=== PATIENT | male | born 1965 | race Caucasian/White ===

== ENCOUNTER 2016-07-05 11:04 | Emergency (ER) | payer OTHER ==
[2016-07-05] MEDS ORDERED: ONDANSETRON HCL INJ/PF 4 MG/2 ML SDV ONE (11:19)
[2016-07-05 11:29] LABS: ABSOLUTE BASOPHILS # (AUTO) 0.1 10^3/uL (0.0-0.2); ABSOLUTE LYMPHOCYTES (AUTO) 2.1 10^3/uL (0.5-4.7); ABSOLUTE MONOCYTES (AUTO) 0.5 10^3/uL (0.1-1.4); BASOPHILS % (AUTO) 0.7 % (0-2); HEMATOCRIT 37.8 % (37.9-51.0); HGB HCT DIFFERENCE 1.2; LYMPHOCYTES % (AUTO) 19.5 % (13-45); MEAN CORPUSCULAR HEMOGLOBIN 33.4 pg (27.0-33.4); MEAN CORPUSCULAR HGB CONC 34.4 g/dL (32.0-36.0); MEAN CORPUSCULAR VOLUME 97 fl (80-97); MONOCYTES % (AUTO) 4.6 % (3-13); RED CELL DISTRIBUTION WIDTH 14.1 % (11.5-14.0); SEGMENTED NEUTROPHILS % (AUTO) 75.2 % (42-78); WHITE BLOOD COUNT 10.6 10^3/uL (4.0-10.5)
[2016-07-05] MEDS ORDERED: NORMAL SALINE 1000 ML 1,000 ML IV PRN (11:37)
[2016-07-05] MEDS ORDERED: PANTOPRAZOLE SODIUM 40 MG VIAL IV ONE (11:37)
[2016-07-05 11:38] LABS: PROTHROMBIN TIME 13.1 SEC (11.4-15.4)
[2016-07-05] MEDS ORDERED: THIAMINE HCL 100 MG, FOLIC ACID 1 MG in NORMAL SALINE 50 ML IV ONE (11:38)
[2016-07-05] MEDS ORDERED: LORAZEPAM INJ 2 MG/1 ML VIAL IV ONE (11:38)
[2016-07-05] MEDS ORDERED: PANTOPRAZOLE SODIUM 40 MG VIAL IV PRN (11:38)
[2016-07-05] MEDS ORDERED: NORMAL SALINE 250 ML IV PRN (11:39)
[2016-07-05] MEDS ORDERED: NORMAL SALINE 500 ML with OCTREOTIDE ACETATE 500 MCG IV PRN ×2 (11:44)
--- NOTE | 2016-07-05 11:44 | ER Document Report ---
ED General - General Chief Complaint: Nausea/Vomiting Stated Complaint: VOMITING Time seen by provider: 11:30 Mode of Arrival: Medic Information source: Patient Notes: 50-year-old male with a 2 day history of coffee ground emesis and black tarry stools. He reports she's also had diaphoresis and chills for the past 2 days but denies any fever, cough, shortness of breath, chest pain, abdominal pain, or back pain. He denies any hematemesis or hematochezia. He denies any past history of symptoms like this. He reports drinking 240 ounce beers at night most recent L [employer] was last night. EMS found initial blood pressure to be 70/54 with a heart rate of 145. The patient reports feeling somewhat better now after 1 L of IV fluids. And Zofran 8 mg IV. Physical Exam: General: Alert, appears uncomfortable and shaky HEENT: Normocephalic. Atraumatic. PERRLA. Extraocular movements intact. Oropharynx clear. Neck: Supple. Non-tender. Respiratory tachypnea. Clear and equal breath sounds bilaterally. Cardiovascular: Tachycardic Abdominal: Normal Inspection. Soft, non-tender. No distension. Normal Bowel Sounds. No guarding rebound rigidity rectal normal tone tarry stool Back: Non-tender. No deformity or step off. Extremities: Moves all four extremities. Upper extremities: Normal inspection. Non-tender. Normal color. Normal ROM. Normal temperature. Lower extremities: Normal inspection. Non-tender. No edema. Normal color. Normal ROM. Normal temperature. Neurological: Speech clear mentation normal moves all extremities well Psychological: Normal affect. Normal Mood. Skin: Cool and clammy . Normal color. TRAVEL OUTSIDE OF THE U.S. IN LAST 30 DAYS: No - Related Data Allergies/Adverse Reactions: No Known Allergies Allergy (Verified 01/04/15 14:06) Past Medical History - Social History Smoking Status: Current Every Day Smoker Frequency of alcohol use: Heavy Family History: None - Past Medical History Cardiac Medical History: Reports: Hx Hypertension Denies: Hx Coronary Artery Disease, Hx Heart Attack Pulmonary Medical History: Reports: Hx Pneumonia Denies: Hx Asthma, Hx Bronchitis, Hx COPD Neurological Medical History: Denies: Hx Cerebrovascular Accident, Hx Seizures Musculoskeltal Medical History: Reports Hx Arthritis Psychiatric Medical History: Reports: Hx Depression Traumatic Medical History: Reports: Hx Fractures - right ankle Past Surgical History: Denies: Hx Pacemaker - Immunizations Hx Diphtheria, Pertussis, Tetanus Vaccination: No Hx Pneumococcal Vaccination: 06/28/15 Review of Systems - Review of Systems Constitutional: denies: Fever EENT: denies: Ear pain, Throat pain Cardiovascular: denies: Chest pain, Syncope Respiratory: denies: Cough, Short of breath Gastrointestinal: See HPI. denies: Diarrhea Genitourinary: denies: Burning Musculoskeletal: denies: Back pain Skin: denies: Rash Hematologic/Lymphatic: denies: Swollen glands Neurological/Psychological: denies: Weakness, Numbness Physical Exam - Vital signs Vitals: Resp Pulse Ox 22 H 99 07/05/16 11:14 07/05/16 11:14 Course - Re-evaluation Re-evalutation: 07/05/16 14:21 Patient was hypotensive in the field but responded promptly to IV fluids and has not had any further episodes of hypotension however he has remained tachycardic after 3 L of saline. Type and cross for 2 units has been ordered but I will not or administer those as yet. I suspect upper GI bleed most likely ulcer he has not had any hematemesis worrisome for variceal bleeding. This facility currently has no gastroenterology coverage. He requires transfer and of the hospitalist service at [facility] in [place] has accepted him in transfer. Patient has been started on IV proton ask and IV Sandostatin in case there is a variceal component to his bleeding. Patient was slightly shaky on arrival but no bleeding she had an alcohol withdrawal but he will receive thiamine and folate and did receive one dose of IV Ativan on arrival. He is not having any evidence currently of DTs Critical care time excluding billable procedures 45 minutes - Vital Signs Vital signs: Temp Pulse Resp BP Pulse Ox 21 H 150/107 H 100 07/05/16 13:01 07/05/16 13:00 07/05/16 13:01 - Laboratory Result Diagrams: 07/05/16 11:05 07/05/16 11:05 Laboratory results interpreted by me: 07/05/16 07/05/16 07/05/16 11:05 11:05 11:05 WBC 10.6 H RBC 3.90 L Hgb 13.0 L Hct 37.8 L RDW 14.1 H Chloride 97 L BUN 38 H Glucose 190 H AST 101 H ALT 89 H Alkaline Phosphatase 215 H Urine Protein Urine Ketones Crossmatch See Detail 07/05/16 13:10 WBC RBC Hgb Hct RDW Chloride BUN Glucose AST ALT Alkaline Phosphatase Urine Protein 30 H Urine Ketones 20 H Crossmatch - Diagnostic Test Radiology reviewed: Image reviewed, Reports reviewed - EKG Interpretation by Me Additional EKG results interpreted by me: 07/05/16 14:21 EKG reviewed by myself sinus tachycardia 109 no acute changes Discharge - Discharge Clinical Impression: Alcohol abuse Gastrointestinal hemorrhage Qualifiers: GI bleed type/associated pathology: melena Qualified Code(s): K92.1 - Melena Hypotension Qualifiers: Hypotension type: unspecified hypotension type Qualified Code(s): I95.9 - Hypotension, unspecified Condition: Serious Disposition: [facility]
[2016-07-05 11:56] LABS: ALANINE AMINOTRANSFERASE 89 U/L (21-72); ALBUMIN 4.2 g/dL (3.5-5.0); ALKALINE PHOSPHATASE 215 U/L (38-126); ANION GAP 19 (5-19); ASPARTATE AMINO TRANSFERASE 101 U/L (17-59); BILIRUBIN,TOTAL 0.8 mg/dL (0.2-1.3); BLOOD UREA NITROGEN 38 mg/dL (7-20); CALCIUM 8.6 mg/dL (8.4-10.2); CARBON DIOXIDE 22 mmol/L (22-30); CHLORIDE 97 mmol/L (98-107); CREATININE RESULT 0.69 mg/dL (0.52-1.25); GLUCOSE 190 mg/dL (75-110); LIPASE 68.6 U/L (23-300); POTASSIUM 4.1 mmol/L (3.6-5.0); SODIUM 138.1 mmol/L (137-145); TOTAL PROTEIN 7.8 g/dL (6.3-8.2)
[2016-07-05 13:35] LABS: APPEARANCE,URINE CLEAR; BILIRUBIN,URINE NEGATIVE (NEGATIVE); GLUCOSE, URINE NEGATIVE (NEGATIVE); KETONES,URINE 20 mg/dL (NEGATIVE); LEUKOCYTE ESTERASE,URINE NEGATIVE (NEGATIVE); NITRITE,URINE NEGATIVE (NEGATIVE); PROTEIN,URINE 30 mg/dL (NEGATIVE); URINE SPECIFIC GRAVITY 1.025; UROBILINOGEN,URINE NEGATIVE mg/dL (<2.0)
[2016-07-05] MEDS ORDERED: LORAZEPAM INJ 2 MG/1 ML VIAL ONE (16:09)
[2016-07-05 16:47] VITALS: BP 115/87
--- NOTE | 2016-07-05 20:04 | EKG REPORT ---
SEVERITY:- BORDERLINE ECG - SINUS TACHYCARDIA BORDERLINE PROLONGED QT INTERVAL : Confirmed by: Davi Kay 05-Jul-2016 20:02:27
== END 2016-07-05 16:53 | disposition short-term general hospital (02) ==
LOC: ER 11:04
DX: K92.2 Gastrointestinal hemorrhage, unspecified (principal); F10.239 Alcohol dependence with withdrawal, unspecified; I95.9 Hypotension, unspecified; R11.10 Vomiting, unspecified; R61 Generalized hyperhidrosis; R68.83 Chills (without fever); R00.0 Tachycardia, unspecified; R06.82 Tachypnea, not elsewhere classified; F17.200 Nicotine dependence, unspecified, uncomplicated; I10 Essential (primary) hypertension
CPT/HCPCS: 93005; 96376; 99291; 96375; 96365; 96366; 96367; 86900; 86901; 36415; 87086; 86850; 80307; 82140; 83690; 85025; 85610; 85730; 82272; 80053; 81001; 86920; 71010; 93010; J3490; J2060; S0164; J3411; J2405; J7030

== ENCOUNTER 2016-08-27 16:15 | Emergency (ER) | payer OTHER ==
[2016-08-27] MEDS ORDERED: ONDANSETRON 4 MG TAB.RAPDIS PO ONE (17:44)
[2016-08-27] MEDS ORDERED: OXYCODONE-ACETAMINOPHEN 5-325 MG TABLET PO ONE (17:44)
--- NOTE | 2016-08-27 17:48 | ER Document Report ---
HPI - HPI Patient complains to provider of: left wrist injury Onset: This afternoon Onset/Duration: Sudden Pain Level: 5 Context: 50 yo male hyperextended left wrist when fell this afternoon. Swelling and tender distal radiaus. Associated Symptoms: None Exacerbated by: Movement Relieved by: Denies Similar symptoms previously: No Recently seen / treated by doctor: No - ROS ROS below otherwise negative: Yes Systems Reviewed and Negative: Yes All other systems reviewed and negative - REPRODUCTIVE Reproductive: DENIES: : - DERM Skin Color: Normal Past Medical History - General Information source: Patient - Social History Smoking Status: Current Every Day Smoker Frequency of alcohol use: Occasional Drug Abuse: None Lives with: Family Family History: None - Past Medical History Cardiac Medical History: Reports: Hx Hypertension Pulmonary Medical History: Reports: Hx Pneumonia Renal/ Medical History: Denies: Hx Peritoneal Dialysis Musculoskeltal Medical History: Reports Hx Arthritis Psychiatric Medical History: Reports: Hx Depression Traumatic Medical History: Reports: Hx Fractures - right ankle Past Surgical History: Denies: Hx Pacemaker - Immunizations Hx Diphtheria, Pertussis, Tetanus Vaccination: No Hx Pneumococcal Vaccination: 06/28/15 Vertical Provider Document - CONSTITUTIONAL Agree With Documented VS: Yes Exam Limitations: No Limitations - INFECTION CONTROL TRAVEL OUTSIDE OF THE U.S. IN LAST 30 DAYS: No - HEENT HEENT: Normocephalic - NECK Neck: Supple - RESPIRATORY O2 Sat by Pulse Oximetry: 95 - MUSCULOSKELETAL/EXTREMETIES Musculoskeletal/Extremeties: Tender - sweling dorsal radial wrist soft tissue, tender distal radisu, Edema Notes: avoids flexion and extension due to pain, ulna non tender - NEURO Level of Consciousness: Awake, Alert, Appropriate Motor/Sensory: No Motor Deficit, No Sensory Deficit - DERM Integumentary: Warm, Dry, No Rash Course - Re-evaluation Re-evalutation: 08/27/16 18:07 [facility] that I did give him the referral to Dr. Henley. Prelim radiology interpretation is impacted distal left radius fracture 08/27/16 18:11 08/27/16 23:16 ? scaphoid fx per radiologist, will call the pt in the morning to insure that he understands the need for follow up - Vital Signs Vital signs: Temp Pulse Resp BP Pulse Ox 98.2 F 93 18 138/100 H 95 08/27/16 17:17 08/27/16 17:17 08/27/16 17:17 08/27/16 17:17 08/27/16 17:17 Procedures - Immobilization Left Wrist Time completed: 18:15 Pre-Proc Neuro Vasc Exam: Normal Immobilizer type: Volar splint, Sling Performed by: PCT Post-Proc Neuro Vasc Exam: Normal Alignment checked and good: Yes Discharge - Discharge Clinical Impression: Elevated blood pressure reading, impacted distal radius fracture Condition: Good Disposition: HOME, SELF-CARE Instructions: Splint Precautions ([facility]), Splint Pending Casting ([facility]), Oral Narcotic Medication ([facility]), Family Physicians / Practices Additional Instructions: elevate splint sling recheck your blood pressure with family practice doctor this week call the orthopedic doctor for appointment this week to er any concerns Please complete the patient satisfaction survey if you get one, and return it.. If you do not receive a survey, then you can go to the [facility] website, [email or web address] and place your comments about your very good care. Thank you very much. It was a pleasure being your medical provider today. Prescriptions: Oxycodone HCl/Acetaminophen [Percocet 5-325 mg Tablet] 1 - 2 tab PO ASDIR PRN # 20 tablet PRN Reason: Referrals: GUANAKITO HENLYE DO [ACTIVE STAFF] - Follow up tomorrow
[2016-08-27 18:15] VITALS: BP 132/96
== END 2016-08-27 18:27 | disposition home or self-care (01) ==
LOC: ER 16:15
PROC: 2W3DX1Z Immobilization of Left Lower Arm using Splint (ICD-10-PCS; principal; 2016-08-27)
DX: S52.592A Other fractures of lower end of left radius, initial encounter for closed fracture (principal); W07.XXXA Fall from chair, initial encounter; Y93.89 Activity, other specified; F17.200 Nicotine dependence, unspecified, uncomplicated; I10 Essential (primary) hypertension
CPT/HCPCS: 29125; 99283; 73110; S0119

== ENCOUNTER 2016-10-02 09:00 | Emergency (ER) | payer OTHER ==
[2016-10-02 09:45] LABS: ABSOLUTE BASOPHILS # (AUTO) 0.1 10^3/uL (0.0-0.2); ABSOLUTE EOSINOPHILS # (AUTO) 0.1 10^3/uL (0.0-0.6); ABSOLUTE MONOCYTES (AUTO) 0.8 10^3/uL (0.1-1.4); ABSOLUTE NEUT (AUTO) 5.2 10^3/uL (1.7-8.2); BASOPHILS % (AUTO) 1.1 % (0-2); EOSINOPHILS % (AUTO) 0.7 % (0-6); HEMATOCRIT 37.5 % (37.9-51.0); HEMOGLOBIN 12.6 g/dL (13.5-17.0); HGB HCT DIFFERENCE 0.3; LYMPHOCYTES % (AUTO) 24.9 % (13-45); MEAN CORPUSCULAR HEMOGLOBIN 32.8 pg (27.0-33.4); MEAN CORPUSCULAR HGB CONC 33.5 g/dL (32.0-36.0); MEAN CORPUSCULAR VOLUME 98 fl (80-97); MONOCYTES % (AUTO) 10.2 % (3-13); RED BLOOD COUNT 3.83 10^6/uL (4.35-5.55); SEGMENTED NEUTROPHILS % (AUTO) 63.1 % (42-78); WHITE BLOOD COUNT 8.2 10^3/uL (4.0-10.5)
[2016-10-02 10:07] LABS: ALANINE AMINOTRANSFERASE 60 U/L (21-72); ALKALINE PHOSPHATASE 142 U/L (38-126); ANION GAP 15 (5-19); ASPARTATE AMINO TRANSFERASE 64 U/L (17-59); BILIRUBIN,DIRECT 0.5 mg/dL (0.0-0.4); BILIRUBIN,TOTAL 1.2 mg/dL (0.2-1.3); BLOOD UREA NITROGEN 23 mg/dL (7-20); CALCIUM 9.1 mg/dL (8.4-10.2); CARBON DIOXIDE 24 mmol/L (22-30); CHLORIDE 103 mmol/L (98-107); CREATININE RESULT 0.67 mg/dL (0.52-1.25); GLUCOSE 104 mg/dL (75-110); LIPASE 79.2 U/L (23-300); POTASSIUM 3.6 mmol/L (3.6-5.0); TOTAL PROTEIN 7.2 g/dL (6.3-8.2)
[2016-10-02 10:18] LABS: PROTHROMBIN TIME 13.3 SEC (11.4-15.4)
[2016-10-02] MEDS ORDERED: METOCLOPRAMIDE HCL ORAL SOLN 10 MG/10 ML UDCUP PO ONE (10:20)
[2016-10-02] MEDS ORDERED: MAG HYDROX/AL HYDROX/SIMETH SUSP 30 ML UDCUP PO ONE (10:20)
[2016-10-02] MEDS ORDERED: LIDOCAINE 2% VISCOUS SOLN 20 ML UDCUP PO ONE (10:20)
[2016-10-02] MEDS ORDERED: PANTOPRAZOLE SODIUM 40 MG VIAL IV ONE (10:21)
--- NOTE | 2016-10-02 10:21 | ER Document Report ---
ED GI Bleed / Rectal Pain - General Mode of Arrival: Medic Information source: Patient TRAVEL OUTSIDE OF THE [place] IN LAST 30 DAYS: No - HPI Patient complains to provider of: Dark/tarry stools Onset: Yesterday Timing/Duration: Sudden, Persistent Emesis description: Blood tinged Dark Stools: Black Use of: NSAIDS Associated symptoms: Abdominal pain Similar symptoms previously: Yes - 3 months ago Gastric Ulcer <HARMONY RIGGINS - Last Filed: 10/02/16 12:04> <JUSTINA HYLTON - Last Filed: 10/09/16 03:42> - General Chief Complaint: Rectal Bleeding Stated Complaint: RECTAL BLEEDING Time Seen by Provider: 10/02/16 09:59 Notes: Patient is a 50-year-old male, with history of heavy alcohol consumption and a gastric ulcer 3 months ago, presenting to the emergency department via EMS concerned of black stools and blood streaked stools. Patient states that this began yesterday afternoon, and has continued throughout the night into today. Patient states that his bowel movements were thick and black, and now they are loose with a red tint. Patient denies any nausea or vomiting, but admits to epigastric abdominal pain. Patient also admits to significant use of Naproxen and Ibuprofen for pain associated with his arthritis. (HARMONY RIGGINS) - Related Data Allergies/Adverse Reactions: No Known Allergies Allergy (Verified 10/02/16 09:12) Past Medical History - General Information source: Patient - Social History Smoking Status: Never Smoker Cigarette use (# per day): No Chew tobacco use (# tins/day): Yes Frequency of alcohol use: Heavy Drug Abuse: None Family History: None Patient has suicidal ideation: No Patient has homicidal ideation: No - Past Medical History Cardiac Medical History: Reports: Hx Hypertension Pulmonary Medical History: Reports: Hx Pneumonia GI Medical History: Reports: Hx Endoscopy, Other - Gastric ulcer Musculoskeltal Medical History: Reports Hx Arthritis Psychiatric Medical History: Reports: Hx Depression Traumatic Medical History: Reports: Hx Fractures - right ankle, left wrist - Immunizations Hx Diphtheria, Pertussis, Tetanus Vaccination: No Hx Pneumococcal Vaccination: 06/28/15 <HARMONY RIGGINS - Last Filed: 10/02/16 12:04> Review of Systems - Review of Systems Constitutional: No symptoms reported EENT: No symptoms reported Cardiovascular: No symptoms reported Respiratory: No symptoms reported Gastrointestinal: See HPI, Abdominal pain, Blood streaked bowels, Black stools Genitourinary: No symptoms reported Male Genitourinary: No symptoms reported Musculoskeletal: No symptoms reported Skin: No symptoms reported Hematologic/Lymphatic: No symptoms reported Neurological/Psychological: No symptoms reported -: Yes All other systems reviewed and negative <HARMONY RIGGINS - Last Filed: 10/02/16 12:04> Physical Exam - General General appearance: Alert - HEENT Head: Normocephalic, Atraumatic Eyes: Normal Pupils: PERRL - Respiratory Respiratory status: No respiratory distress Chest status: Nontender Breath sounds: Normal Chest palpation: Normal - Cardiovascular Rhythm: Regular Heart sounds: Normal auscultation Murmur: No - Abdominal Inspection: Normal Distension: No distension Bowel sounds: Normal Tenderness: Tender - Mild epigastric tenderness to palpation, no guarding, rebound or rigidity. Organomegaly: No organomegaly - Rectal Stool: Heme positive, Black - Back Back: Normal, Nontender - Extremities General lower extremity: Normal inspection, Nontender Wrist: Other - Cast on left wrist - Neurological Neuro grossly intact: Yes Cognition: Normal Orientation: AAOx4 [place] Coma Scale Eye Opening: Spontaneous Johana Coma Scale Verbal: Oriented [place] Coma Scale Motor: Obeys Commands [place] Coma Scale Total: 15 Speech: Normal - Psychological Associated symptoms: Normal affect, Normal mood - Skin Skin Temperature: Warm Skin Moisture: Dry Skin Color: Normal <HARMONY RIGGINS - Last Filed: 10/02/16 12:04> <JUSTINA HYLTON - Last Filed: 10/09/16 03:42> - Vital signs Vitals: Temp Pulse Resp BP Pulse Ox 98.2 F 110 H 21 H 140/102 H 97 10/02/16 09:09 10/02/16 09:09 10/02/16 09:09 10/02/16 09:09 10/02/16 09:09 - Rectal Notes: Rectal exam witnessed by Harmony Riggins. Black melanotic stool noted on exam (HARMONY RIGGINS) Course - Laboratory Result Diagrams: 10/02/16 09:30 10/02/16 09:30 - Consults [facility] Time consulted: 11:43 - Placed on waiting list, no beds available Jessica Time consulted: 11:45 - Contacted transfer center Dr. El Time consulted: 11:57 <HARMONY RIGGINS - Last Filed: 10/02/16 12:04> - Laboratory Result Diagrams: 10/02/16 09:30 10/02/16 09:30 <JUSTINA HYLTON - Last Filed: 10/09/16 03:42> - Re-evaluation Re-evalutation: 10/02/16 11:55 Patient presents emergency department with melanotic stool. Patient is a chronic alcoholic also takes a daily Naprosyn and ibuprofen. The bleeding started yesterday afternoon he is not vomiting he was seen and evaluated at [facility] 3 months ago for the same was admitted and scoped and had a gastric ulcer. He normally drinks daily about 240s a day has not had any alcohol since 930 last night due to the pain and vomiting in his epigastrium. He says he has gone through mild withdrawal in the past but never had a seizure or was admitted for alcohol withdrawal he does take Naprosyn once a day in addition to 2 times a day taking 800 mg of Motrin. He is not actively vomiting he is slightly tachycardic but not hypotensive. He is awake alert GCS of 15 and not intoxicated mild epigastric tenderness with no associated guarding rebound or rigidity responsive to GI cocktail. Acute H&H are stable liver enzymes are stable. He is guaiac positive melanotic stool from below not actively vomiting. At this time we do not have GI coverage here I contacted [facility] we are on a waiting list I [facility] who is supposed to call me back but also will be on a waiting list. Findings stated that they were called her [facility] to see if there are any open or available beds at this time for that. (JUSTINA HYLTON) - Vital Signs Vital signs: Temp Pulse Resp BP Pulse Ox 98.2 F 110 H 14 128/93 H 98 10/02/16 09:09 10/02/16 09:09 10/02/16 13:23 10/02/16 13:23 10/02/16 13:23 - Laboratory Laboratory results interpreted by me: 10/02/16 10/02/16 09:30 09:30 RBC 3.83 L Hgb 12.6 L Hct 37.5 L MCV 98 H RDW 16.0 H BUN 23 H Direct Bilirubin 0.5 H AST 64 H Alkaline Phosphatase 142 H - EKG Interpretation by Me Additional EKG results interpreted by me: 10/02/16 10:36 EKG interpreted by myself to reveal sinus rhythm at [address] segment elevation or depression (JUSTINA HYLTON) - Consults Dr. El Reason for consultation: 10/02/16 12:06 Discussed patient's case with Dr. El from [facility], and he agrees to accept the patient to [facility] in [place]. (HARMONY RIGGINS) Discharge <HARMONY RIGGINS - Last Filed: 10/02/16 12:04> <JUSTINA HYLTON - Last Filed: 10/09/16 03:42> - Discharge Disposition: [facility] Referrals: SANTOSH COLIN MD [Primary Care Provider] - Follow up as needed Scribe Documentation - Scribe Written by Scribe:: Imtiaz Buckner, 10/02/2016 1020 acting as scribe for :: Jose <HARMONY RIGGINS - Last Filed: 10/02/16 12:04>
[2016-10-02] MEDS ORDERED: RINGERS SOLUTION,LACTATED 1,000 ML IV ONE (10:22)
--- NOTE | 2016-10-02 12:16 | EKG REPORT ---
SEVERITY:- NORMAL ECG - SINUS RHYTHM : Confirmed by: Zuly Grant MD 02-Oct-2016 12:15:13
[2016-10-02 13:47] VITALS: BP 128/93
== END 2016-10-02 13:55 | disposition other institution (70) ==
LOC: ER 09:00
DX: K92.2 Gastrointestinal hemorrhage, unspecified (principal); D62 Acute posthemorrhagic anemia; K25.9 Gastric ulcer, unspecified as acute or chronic, without hemorrhage or perforation; F10.10 Alcohol abuse, uncomplicated; R10.13 Epigastric pain
CPT/HCPCS: 93005; 99285; 96374; 36415; 83690; 85025; 85610; 80053; 84484; 93010; J3490; S0164; J7120

== ENCOUNTER → 2018-09-27 | Emergency (ER) | payer OTHER ==
[~2018-09-27] MED LIST: CEFTRIAXONE 1 GM/D5W RTU 1 GM/50 ML RTUPB IV ONE; POTASSIUM CHLORIDE 10 MEQ CAPSULE.ER PO ONE
[2018-09-27 14:32] LABS: ABSOLUTE BASOPHILS # (AUTO) 0.1 10^3/uL (0.0-0.2); ABSOLUTE EOSINOPHILS # (AUTO) 0.1 10^3/uL (0.0-0.6); ABSOLUTE LYMPHOCYTES (AUTO) 1.3 10^3/uL (0.5-4.7); ABSOLUTE MONOCYTES (AUTO) 0.9 10^3/uL (0.1-1.4); ABSOLUTE NEUT (AUTO) 16.6 10^3/uL (1.7-8.2); BASOPHILS % (AUTO) 0.5 % (0-2); EOSINOPHILS % (AUTO) 0.3 % (0-6); HEMATOCRIT 34.3 % (37.9-51.0); HEMOGLOBIN 12.3 g/dL (13.5-17.0); LYMPHOCYTES % (AUTO) 7.1 % (13-45); MEAN CORPUSCULAR HEMOGLOBIN 38.3 pg (27.0-33.4); MEAN CORPUSCULAR HGB CONC 35.8 g/dL (32.0-36.0); MEAN CORPUSCULAR VOLUME 107 fl (80-97); MONOCYTES % (AUTO) 4.6 % (3-13); RED BLOOD COUNT 3.21 10^6/uL (4.35-5.55); RED CELL DISTRIBUTION WIDTH 17.6 % (11.5-14.0); SEGMENTED NEUTROPHILS % (AUTO) 87.5 % (42-78); TOTAL CELLS COUNTED % (AUTO) 100 %
[2018-09-27 14:40] LABS: ALANINE AMINOTRANSFERASE 32 U/L (21-72); ALBUMIN 2.9 g/dL (3.5-5.0); ALKALINE PHOSPHATASE 257 U/L (38-126); ANION GAP 14 (5-19); ASPARTATE AMINO TRANSFERASE 163 U/L (17-59); BILIRUBIN,DIRECT 21.3 mg/dL (0.0-0.4); BILIRUBIN,TOTAL 23.9 mg/dL (0.2-1.3); BLOOD UREA NITROGEN 7 mg/dL (7-20); CALCIUM 7.5 mg/dL (8.4-10.2); CARBON DIOXIDE 25 mmol/L (22-30); CHLORIDE 91 mmol/L (98-107); GLUCOSE 96 mg/dL (75-110); LIPASE 69.6 U/L (23-300); SODIUM 129.9 mmol/L (137-145); TOTAL PROTEIN 7.6 g/dL (6.3-8.2)
[2018-09-27 14:48] LABS: POTASSIUM 2.2 mmol/L (3.6-5.0)
[2018-09-27 15:05] LABS: PLATELET COUNT 238 10^3/uL (150-450)
--- NOTE | 2018-09-27 15:23 | ER Document Report ---
ED General - General Chief Complaint: Abdominal Distention Stated Complaint: ABDOMINAL PAIN Time Seen by Provider: 09/27/18 15:15 Primary Care Provider: SANTOSH COLIN MD [Primary Care Provider] - Follow up as needed Notes: Patient says he has not had any appetite and has not eaten anything in about 4 days. He says he is unable to have a bowel movement or passed any urine for about 2 days. Complains of generalized stomach pain. Has been feeling tired and weak with no energy over the past few weeks. Denies any vomiting or diarrhea. Denies fever. When questioned, patient says his urine does appear darker than usual. Patient is obviously very jaundiced, but he thinks it is due to the natural color of his skin. When questioned, patient admits that he drinks heavily on a daily basis. Says he drinks 2 or 3 40 ounce beers a day. However, he says that he has never been told that he has any liver and should stop drinking. TRAVEL OUTSIDE OF THE [place]S. IN LAST 30 DAYS: No - Related Data Allergies/Adverse Reactions: No Known Allergies Allergy (Verified 10/02/16 09:12) Past Medical History - Social History Smoking Status: Never Smoker Chew tobacco use (# tins/day): No Frequency of alcohol use: Heavy Drug Abuse: None Family History: None, Reviewed & Not Pertinent Patient has suicidal ideation: No Patient has homicidal ideation: No - Past Medical History Cardiac Medical History: Reports: Hx Hypertension Pulmonary Medical History: Reports: Hx Pneumonia Endocrine Medical History: Reports: Other - Patient has chronic low potassium and takes potassium supplement.. Denies: Hx Diabetes Mellitus Type 1, Hx Diabetes Mellitus Type 2 GI Medical History: Reports: Hx Endoscopy, Other - Patient has never been told that he has any liver disease other than about. Denies: Hx Cirrhosis, Hx Hepatitis Musculoskeletal Medical History: Reports Hx Arthritis Psychiatric Medical History: Reports: Hx Depression Traumatic Medical History: Reports: Hx Fractures - right ankle, left wrist - Immunizations Hx Diphtheria, Pertussis, Tetanus Vaccination: No Hx Pneumococcal Vaccination: 06/28/15 Review of Systems - Review of Systems Notes: REVIEW OF SYSTEMS: CONSTITUTIONAL : Denies fever. EENT: Denies eye, ear, nose or mouth or throat pain or other symptoms. CARDIOVASCULAR: Denies chest pain. RESPIRATORY: Denies cough, chest congestion, or shortness of breath. GASTROINTESTINAL: See HPI. GENITOURINARY: Denies difficulty or painful urinating, urinary frequency, blood in urine. MUSCULOSKELETAL: Denies back or neck pain. Denies joint pain or swelling. SKIN: Denies rash or skin lesions. NEUROLOGICAL: Denies LOC or altered mental status. Denies headache. Denies sensory loss or motor deficits. ALL OTHER SYSTEMS REVIEWED AND NEGATIVE. Physical Exam - Vital signs Vitals: Temp Pulse BP Pulse Ox 98.6 F 92 134/80 H 94 09/27/18 14:09 09/27/18 14:09 09/27/18 14:09 09/27/18 14:09 Interpretation: Normal Notes: PHYSICAL EXAMINATION: GENERAL: Patient is severely jaundiced with significant yellow color to his entire body. In no acute distress. Vital signs are all normal. HEAD: Atraumatic, normocephalic. EYES: Pupils equal round and reactive to light, extraocular movements intact. Scleral icterus ENT: oropharynx clear without exudates. Moist mucous membranes. NECK: Normal range of motion, supple. LUNGS: Breath sounds clear and equal bilaterally. HEART: Regular rate and rhythm without murmurs. ABDOMEN: Soft, nontender. Moderately distended with ascitic fluid. Not tense and no guarding or rebound. No masses. I do not think I can feel the liver. BACK: No tenderness throughout entire back. EXTREMITIES: Normal range of motion without pain. No edema of the lower extremities. NEUROLOGICAL: Normal speech, normal gait. Normal sensory, motor, and reflex exams. Awake, alert, and oriented x3. Cranial nerves normal. PSYCH: Normal mood, normal affect. SKIN: Warm, dry, no rashes. Course - Re-evaluation Re-evalutation: 09/27/18 15:24 Discussed with hospitalist and they feel patient cannot be adequately cared for here at this facility without GI back-up. [facility] and spoke with Dr. Hdez, who accepted the patient, and he will be transfer to [facility]. 09/27/18 18:14 We are still awaiting a bed at [facility], and the patient did come in with discomfort of his abdomen and his white count is 19,000 so I am going to do a couple of blood cultures and give the patient a gram of Rocephin on the possib ility that he could have an abdominal peritoneal infection. - Vital Signs Vital signs: Temp Pulse Resp BP Pulse Ox 98.6 F 92 20 123/82 98 09/27/18 14:09 09/27/18 14:09 09/27/18 19:00 09/27/18 19:01 09/27/18 19:01 - Laboratory Result Diagrams: 09/27/18 13:40 09/27/18 19:51 Laboratory results interpreted by me: 09/27/18 09/27/18 09/27/18 13:40 13:40 13:40 WBC 19.0 H RBC 3.21 L Hgb 12.3 L Hct 34.3 L MCV 107 H MCH 38.3 H RDW 17.6 H Seg Neutrophils % 87.5 H Lymphocytes % 7.1 L Absolute Neutrophils 16.6 H PT APTT Sodium 129.9 L Potassium 2.2 L* Chloride 91 L Calcium 7.5 L Magnesium 2.9 H Total Bilirubin 23.9 H Direct Bilirubin 21.3 H AST 163 H Alkaline Phosphatase 257 H Albumin 2.9 L Urine Ketones Urine Blood Urine Bilirubin Urine Urobilinogen 09/27/18 09/27/18 09/27/18 13:40 15:25 19:51 WBC RBC Hgb Hct MCV MCH RDW Seg Neutrophils % Lymphocytes % Absolute Neutrophils PT 23.3 H APTT 52.4 H Sodium 128.5 L Potassium 2.4 L* Chloride 88 L Calcium 7.4 L Magnesium Total Bilirubin Direct Bilirubin AST Alkaline Phosphatase Albumin Urine Ketones TRACE H Urine Blood MODERATE H Urine Bilirubin MODERATE H Urine Urobilinogen 4.0 H - EKG Interpretation by Me EKG shows normal: Sinus rhythm Rate: Normal Rhythm: NSR Additional EKG results interpreted by me: 09/27/18 15:24 EKG is a sinus rhythm at 93. Nonspecific ST changes noted. Discharge - Discharge Clinical Impression: Jaundice Condition: Poor Disposition: [facility] Referrals: SANTOSH COLIN MD [Primary Care Provider] - Follow up as needed
[2018-09-27 15:48] LABS: APPEARANCE,URINE CLEAR; BILIRUBIN,URINE MODERATE (NEGATIVE); COLOR,URINE AMBER; GLUCOSE, URINE NEGATIVE (NEGATIVE); KETONES,URINE TRACE mg/dL (NEGATIVE); LEUKOCYTE ESTERASE,URINE NEGATIVE (NEGATIVE); NITRITE,URINE NEGATIVE (NEGATIVE); PROTEIN,URINE NEGATIVE (NEGATIVE); URINE SPECIFIC GRAVITY 1.008
--- NOTE | 2018-09-27 16:36 | RADIOLOGY REPORT (SQ) ---
EXAM DESCRIPTION: CHEST SINGLE VIEW COMPLETED DATE/TIME: 09/27/2018 4:19 pm REASON FOR STUDY: Shortness of breath COMPARISON: 07/05/2016 and earlier EXAM PARAMETERS: NUMBER OF VIEWS: One view. TECHNIQUE: Single frontal radiographic view of the chest acquired. RADIATION DOSE: NA LIMITATIONS: None. FINDINGS: LUNGS AND PLEURA: No opacities, masses or pneumothorax. No pleural effusion. Similar-appe aring mild elevation the right hemidiaphragm when compared to a study of 2009. MEDIASTINUM AND HILAR STRUCTURES: No masses. Contour normal. HEART AND VASCULAR STRUCTURES: Heart normal in size. Normal vasculature. BONES: No acute findings. HARDWARE: None in the chest. OTHER: No other significant finding. IMPRESSION: NO ACUTE RADIOGRAPHIC FINDING IN THE CHEST. TECHNICAL DOCUMENTATION: JOB ID: [id number] [employer]- All Rights Reserved Reading location - IP/workstation name: [email or web address]
[2018-09-27 17:04] LABS: INTERNATIONAL RATION (INR) 1.97; PROTHROMBIN TIME 23.3 SEC (11.4-15.4)
[2018-09-27 17:05] LABS: PARTIAL THROMBOPLASTIN TIME 52.4 SEC (23.5-35.8)
[2018-09-27 19:22] VITALS: BP 123/82
[2018-09-27 20:26] LABS: ANION GAP 15 (5-19); BLOOD UREA NITROGEN 7 mg/dL (7-20); CALCIUM 7.4 mg/dL (8.4-10.2); CARBON DIOXIDE 26 mmol/L (22-30); CHLORIDE 88 mmol/L (98-107); GLUCOSE 88 mg/dL (75-110); SODIUM 128.5 mmol/L (137-145)
[2018-09-27 20:37] LABS: POTASSIUM 2.4 mmol/L (3.6-5.0)
--- NOTE | 2018-09-27 23:45 | EKG REPORT ---
SEVERITY:- ABNORMAL ECG - SINUS RHYTHM NONSPECIFIC T ABNORMALITIES, DIFFUSE LEADS : Confirmed by: Zuly Grant MD 27-Sep-2018 23:43:35
== END | disposition short-term general hospital (02) ==
LOC: ER 14:05
DX: R17 Unspecified jaundice (principal); R14.0 Abdominal distension (gaseous); I10 Essential (primary) hypertension
CPT/HCPCS: 93005; 99285; 96365; 36415; 87040; 82140; 83690; 83735; 85025; 85610; 85730; 80048; 80053; 81001; 71045; 93010; C1758; J0696

== ENCOUNTER 2019-01-16 15:24 | Inpatient (IN) | payer OTHER ==
[2019-01-16] MEDS ORDERED: NORMAL SALINE 1000 ML 1,000 ML IV ONE (16:29)
--- NOTE | 2019-01-16 16:39 | ER Document Report ---
ED General - General Stated Complaint: WEAKNESS Time Seen by Provider: 01/16/19 16:05 Primary Care Provider: LOAN ALEXIS MD [Primary Care Provider] - Follow up as needed Notes: 53-year-old male history of alcoholic hepatitis presents emergency department complaining of increasing weakness for the past week that started out is feeling somewhat wobbly on standing and has now progressed to standing and falling because he is so dizzy. Denies any pain or headache with this, denies any numbness or tingling, denies any focal weakness. Simply describes generalized overall weakness. He does admit that he had a history of similar symptoms back in either the beginning of September or October this year during which he was transferred to [place] and diagnosed with alcoholic hepatitis. States that he now drinks 1-2 beers a week rather than 2-3 beers a day. Patient admits he has noticed increasing jaundice since that time. Has not noticed any change in his abdominal swelling. Admits a small amount of vomiting, no hematemesis, no coffee-ground emesis, no melena. Decreased appetite. TRAVEL OUTSIDE OF THE [place] IN LAST 30 DAYS: No - Related Data Allergies/Adverse Reactions: No Known Allergies Allergy (Verified 10/02/16 09:12) Past Medical History - General Information source: Patient - Social History Smoking Status: Never Smoker Chew tobacco use (# tins/day): Yes Frequency of alcohol use: Occasional Drug Abuse: None Family History: None, Reviewed & Not Pertinent - Past Medical History Cardiac Medical History: Reports: Hx Hypertension Pulmonary Medical History: Reports: Hx Pneumonia Endocrine Medical History: Denies: Hx Diabetes Mellitus Type 1, Hx Diabetes Mellitus Type 2 Renal/ Medical History: Denies: Hx Peritoneal Dialysis GI Medical History: Reports: Hx Endoscopy. Denies: Hx Cirrhosis, Hx Hepatitis Musculoskeletal Medical History: Reports Hx Arthritis Psychiatric Medical History: Reports: Hx Depression Traumatic Medical History: Reports: Hx Fractures - right ankle, left wrist Infectious Medical History: Denies: Hx Hepatitis - Immunizations Hx Diphtheria, Pertussis, Tetanus Vaccination: No Hx Pneumococcal Vaccination: 06/28/15 Review of Systems - Review of Systems Constitutional: See HPI, Weakness EENT: Blurred vision - Slightly worsening blurred vision since the past week though he is chronically blurred at baseline and is blind in his left eye due to glaucoma. Cardiovascular: See HPI, Dizziness Skin: See HPI, Change in color -: Yes All other systems reviewed and negative Physical Exam - Notes Notes: GENERAL: Alert, interacts well. No acute distress. HEAD: Normocephalic, atraumatic EYES: Pupils equal, round and reactive to light, extraocular movements intact. ENT: Oral mucosa moist, tongue midline. NECK: Full range of motion, supple, trachea midline. LUNGS: Clear to auscultation bilaterally, no wheezes, rales or rhonchi, no respiratory distress. HEART: Regular rate and rhythm, no murmurs, gallops, rubs. ABDOMEN: Soft, nontender, slight fluid wave, no caput medusa, bowel sounds present in all 4 quadrants. EXTREMITIES: Moves all 4 extremities spontaneously, no edema, radial and dorsalis pedis pulses 2/4 bilaterally. No cyanosis. NEUROLOGICAL: Alert and oriented x3, normal speech, biceps and patellar DTRs 2+ bilaterally. asterixis when pushing on hands. PSYCH: Normal mood, normal affect. SKIN: Warm, Dry, normal turgor, no rashes or lesions noted. Mildly jaundiced. Course - Re-evaluation Re-evalutation: 01/16/19 19:55 CBC shows anemia with hemoglobin 9.6, platelets low at 137, coags prolonged co nsistent with alcoholic liver disease, sodium level 130.4, potassium low at 2.4, this will be repleted orally and IV, magnesium levels being checked, lactic acid somewhat elevated at 3.5 but he has no signs of infection, doubt spontaneous bacterial peritonitis as he has no fever, no leukocytosis, no abdominal pain and no tenderness to palpation, total and direct bilirubin are also elevated consist ent with alcoholic liver disease, elevated ammonia at 64.2 is likely the cause of his falls and weakness and confusion. AST and alkaline phosphatase are both mildly elevated, ALT is normal, troponin normal, albumin level, blood and urine cultures are pending, urinalysis does not show any signs of infection. CT scan of the head was ordered given the alcoholic liver disease, prolonged coags and falls, this was negative. Chest x-ray shows no acute process. Patient is being repleted on his potassium before we give lactulose. Discussed with hospitalist Dr. Bhagat who agrees to accept the patient to his service on the [facility]. Agrees with holding the lactulose until we have somewhat repleted his potassium. - Laboratory Result Diagrams: 01/16/19 18:00 01/16/19 18:00 Laboratory results interpreted by me: 01/16/19 01/16/19 01/16/19 18:00 18:00 18:00 RBC 2.85 L Hgb 9.6 L Hct 27.1 L MCH 33.6 H RDW 16.3 H Plt Count 137 L PT 23.1 H Sodium 130.4 L Potassium 2.4 L* Chloride 91 L BUN 4 L Creatinine 0.47 L Lactic Acid Calcium 7.8 L Total Bilirubin 4.8 H Direct Bilirubin 2.5 H AST 103 H Alkaline Phosphatase 195 H Ammonia Albumin 2.9 L Urine Ketones Urine Bilirubin Urine Urobilinogen 01/16/19 01/16/19 01/16/19 18:00 18:00 18:42 RBC Hgb Hct MCH RDW Plt Count PT Sodium Potassium Chloride BUN Creatinine Lactic Acid 3.5 H Calcium Total Bilirubin Direct Bilirubin AST Alkaline Phosphatase Ammonia 64.2 H Albumin Urine Ketones TRACE H Urine Bilirubin SMALL H Urine Urobilinogen 4.0 H - EKG Interpretation by Me Additional EKG results interpreted by me: 01/16/19 19:55 EKG shows sinus tachycardia at a rate of 103, normal axis, normal intervals, no ST segment elevations or depressions, diffuse T wave flattening per my interpretation. Discharge - Discharge Clinical Impression: Hyperammonemia, Hepatic encephalopathy, Hypokalemia, Hyponatremia Condition: Fair Disposition: ADMITTED INPATIENT Admitting Provider: Olayinka (Hospitalist) Unit Admitted: IMCU Referrals: LOAN ALEXIS MD [Primary Care Provider] - Follow up as needed
--- NOTE | 2019-01-16 16:54 | RADIOLOGY REPORT (SQ) ---
EXAM DESCRIPTION: CHEST 2 VIEWS COMPLETED DATE/TIME: 01/16/2019 4:45 pm REASON FOR STUDY: weakness, sepsis COMPARISON: 09/27/2018 EXAM PARAMETERS: NUMBER OF VIEWS: two views TECHNIQUE: Digital Frontal and Lateral radiographic views of the chest acquired. RADIATION DOSE: NA LIMITATIONS: none FINDINGS: LUNGS AND PLEURA: No opacities, masses or pneumothorax. No pleural effusion. MEDIASTINUM AND HILAR STRUCTURES: No masses or contour abnormalities. HEART AND VASCULAR STRUCTURES: Heart normal size. No evidence for failure. BONES: No acute findings. HARDWARE: None in the chest. OTHER: No other significant finding. IMPRESSION: NO ACUTE RADIOGRAPHIC FINDING IN THE CHEST. TECHNICAL DOCUMENTATION: JOB ID: [id number] [employer]- All Rights Reserved Reading location - IP/workstation name: [email or web address]
--- NOTE | 2019-01-16 17:23 | RADIOLOGY REPORT (SQ) ---
EXAM DESCRIPTION: CT HEAD WITHOUT COMPLETED DATE/TIME: 01/16/2019 5:02 pm REASON FOR STUDY: confusion, weakness, hepatitis COMPARISON: 10/22/2011 TECHNIQUE: Axial images acquired through the brain without intravenous contrast. Images reviewed wi th bone, brain and subdural windows. Additional sagittal and coronal reconstructions were generated. Images stored on PACS. All CT scanners at this facility use dose modulation, iterative reconstruction, and/or weight based d osing when appropriate to reduce radiation dose to as low as reasonably achievable (ALARA). [facility]: Dose Right [facility]: CareDose [facility]: Dose Right [facility]: Teradose 4D [facility]: Smart SideTour RADIATION DOSE: CT Rad equipment meets quality standard of care and radiation dose reduction techniq ues were employed. CTDIvol: 53.2 mGy. DLP: 937 mGy-cm. mGy. LIMITATIONS: None. FINDINGS: VENTRICLES: Normal size and contour. CEREBRUM: No masses. No hemorrhage. No midline shift. No evidence for acute infarction. Normal gra y/white matter differentiation. No areas of low density in the white matter. CEREBELLUM: No masses. No hemorrhage. No alteration of density. No evidence for acute infarction. EXTRAAXIAL SPACES: No fluid collections. No masses. ORBITS AND GLOBE: No intra- or extraconal masses. Normal contour of globe without masses. CALVARIUM: No fracture. PARANASAL SINUSES: No fluid or mucosal thickening. SOFT TISSUES: No mass or hematoma. OTHER: No other significant finding. IMPRESSION: NORMAL BRAIN CT WITHOUT CONTRAST. EVIDENCE OF ACUTE STROKE: NO. COMMENT: Quality ID # [id number]: Final reports with documentation of one or more dose reduction techniques (e.g., Automated exposure control, adjustment of the mA and/or kV according to patient size, use of iterative reconstruction technique) TECHNICAL DOCUMENTATION: JOB ID: [id number] [employer]- All Rights Reserved Reading location - IP/workstation name: [email or web address]
[2019-01-16 18:39] LABS: ABSOLUTE EOSINOPHILS # (AUTO) 0.1 10^3/uL (0.0-0.6); ABSOLUTE LYMPHOCYTES (AUTO) 1.6 10^3/uL (0.5-4.7); ABSOLUTE MONOCYTES (AUTO) 0.8 10^3/uL (0.1-1.4); ABSOLUTE NEUT (AUTO) 5.5 10^3/uL (1.7-8.2); BASOPHILS % (AUTO) 0.3 % (0-2); EOSINOPHILS % (AUTO) 0.7 % (0-6); HEMATOCRIT 27.1 % (37.9-51.0); HEMOGLOBIN 9.6 g/dL (13.5-17.0); LYMPHOCYTES % (AUTO) 20.4 % (13-45); MEAN CORPUSCULAR HEMOGLOBIN 33.6 pg (27.0-33.4); MEAN CORPUSCULAR HGB CONC 35.3 g/dL (32.0-36.0); MEAN CORPUSCULAR VOLUME 95 fl (80-97); MONOCYTES % (AUTO) 10.1 % (3-13); PLATELET COUNT 137 10^3/uL (150-450); RED BLOOD COUNT 2.85 10^6/uL (4.35-5.55); RED CELL DISTRIBUTION WIDTH 16.3 % (11.5-14.0); SEGMENTED NEUTROPHILS % (AUTO) 68.5 % (42-78); TOTAL CELLS COUNTED % (AUTO) 100 %
[2019-01-16 18:48] LABS: INTERNATIONAL RATION (INR) 2.01; PROTHROMBIN TIME 23.1 SEC (11.4-15.4)
[2019-01-16 18:56] LABS: ALBUMIN 2.9 g/dL (3.5-5.0); ALKALINE PHOSPHATASE 195 U/L (38-126); ANION GAP 11 (5-19); ASPARTATE AMINO TRANSFERASE 103 U/L (17-59); BILIRUBIN,DIRECT 2.5 mg/dL (0.0-0.4); BILIRUBIN,TOTAL 4.8 mg/dL (0.2-1.3); BLOOD UREA NITROGEN 4 mg/dL (7-20); CALCIUM 7.8 mg/dL (8.4-10.2); CARBON DIOXIDE 28 mmol/L (22-30); CHLORIDE 91 mmol/L (98-107); GLUCOSE 95 mg/dL (75-110)
[2019-01-16 19:01] LABS: POTASSIUM 2.4 mmol/L (3.6-5.0)
[2019-01-16 19:02] LABS: APPEARANCE,URINE CLEAR; BILIRUBIN,URINE SMALL (NEGATIVE); COLOR,URINE AMBER; GLUCOSE, URINE NEGATIVE (NEGATIVE); KETONES,URINE TRACE mg/dL (NEGATIVE); LEUKOCYTE ESTERASE,URINE NEGATIVE (NEGATIVE); NITRITE,URINE NEGATIVE (NEGATIVE); PROTEIN,URINE NEGATIVE (NEGATIVE); URINE SPECIFIC GRAVITY 1.008
[2019-01-16] MEDS ORDERED: RINGERS LACTATED IV ONE (19:37)
[2019-01-16] MEDS ORDERED: POTASSIUM CHLORIDE 10 MEQ CAPSULE.ER PO ONE (19:37)
[2019-01-16] MEDS ORDERED: LACTULOSE SYRUP 20 GM/30 ML UDCUP PO ONE (19:37)
[2019-01-16] MEDS ORDERED: PIPERACILLIN/TAZOBACTAM 4.5 GM VIAL IV ONE (19:37)
[2019-01-16 20:06] LABS: VENOUS BLOOD BASE EXCESS -1.7 mmol/L; VENOUS BLOOD PCO2 33.5 mmHg (35-63); VENOUS BLOOD PH 7.44 (7.30-7.42)
[2019-01-16] MEDS ORDERED: MAG HYDROX/AL HYDROX/SIMETH SUSP 30 ML UDCUP PO PRN (21:27)
[2019-01-16] MEDS ORDERED: TEMAZEPAM 15 MG CAPSULE PO PRN (21:27)
[2019-01-16] MEDS ORDERED: MAGNESIUM HYDROXIDE SUSP 30 ML UDCUP PO PRN (21:27)
[2019-01-16] MEDS ORDERED: NALBUPHINE HCL INJ 10 MG/1 ML AMPULE IV PRN ×3 (21:35→22:36)
[2019-01-16] MEDS ORDERED: DIAZEPAM INJ 10 MG/2 ML DISP.SYRIN IV PRN (21:35)
[2019-01-16] MEDS ORDERED: ACETAMINOPHEN 325 MG TABLET PO PRN (21:35)
[2019-01-16] MEDS ORDERED: CHLORPROMAZINE HCL INJ 25 MG/1 ML AMPULE IV PRN (21:35)
[2019-01-16] MEDS ORDERED: NICOTINE 21 MG/24 HR PATCH.TD24 TD PRN (21:35)
[2019-01-16] MEDS ORDERED: AMITRIPTYLINE HCL 25 MG TABLET PO PRN (21:37)
[2019-01-16] MEDS ORDERED: BACLOFEN 10 MG TABLET PO PRN (21:37)
[2019-01-16 21:57] LABS: ABSOLUTE RETICS # 0.057 10^6/uL (0.028-0.122); RETICULOCYTE COUNT (AUTO) 1.99 % (0.66-2.85)
[2019-01-16 22:00] LABS: IRON(TIBC) 105.7 ug/dL (49-181)
[2019-01-16] MEDS: POTASSI CL 20 MEQ/50 ML RIDER 20 MEQ/50 ML RTUPB IV SCH (22:02)
[2019-01-16 22:23] LABS: FREE T3 2.27 pg/mL (2.77-5.27); FREE T4 (FREE THYROXINE) 1.68 ng/dL (0.78-2.19)
--- NOTE | 2019-01-16 22:32 | EKG REPORT ---
SEVERITY:- ABNORMAL ECG - SINUS TACHYCARDIA NONSPECIFIC T ABNORMALITIES, DIFFUSE LEADS : Confirmed by: Camden Schroeder MD 16-Jan-2019 22:30:54
[2019-01-16 22:37] LABS: THYROID STIMULATING HORMONE 1.62 uIU/mL (0.47-4.68)
[2019-01-16 22:38] LABS: FERRITIN > 1000.00 ng/mL (17.9-464.0)
[2019-01-16 23:07] LABS: FOLATE 2.84 ng/mL (>2.76)
[2019-01-17] MEDS: FAMOTIDINE 20 MG TABLET PO SCH ×3 (00:14→21:19)
[2019-01-17] MEDS: SPIRONOLACTONE 25 MG TABLET PO SCH ×3 (00:14→21:19)
[2019-01-17] MEDS: POTASSI CL 20 MEQ/50 ML RIDER 20 MEQ/50 ML RTUPB IV SCH (00:14)
[2019-01-17] MEDS: HEPARIN SOD (PORCINE) 5,000 UNIT/ML 1 ML VIAL SUBCUT SCH ×4 (00:15→21:19)
[2019-01-17] MEDS: POTASSI CL 20 MEQ/D5LR 1L 20 MEQ/1,000 ML RTUINJ IV PRN ×3 (00:21→14:47)
--- NOTE | 2019-01-17 00:45 | PDOC H&P ---
History of Present Illness Admission Date/PCP: 01/16/19 19:59 LOAN ALEXIS MD Patient complains of: Weakness History of Present Illness: LEXY AC JR is a 53 year old male who presents the emergency room with a one-week history of weakness. Patient admits progressive generalized muscle weakness developing over the last week becoming severe at present. Patient's weakness has been noted primarily in his ability to stand and walk. He admits several falls and near falls related to his weakness, and today he felt very wobbly just trying to stand. He admits a decreased appetite, rare episodes of nausea with a small amount of emesis and an increase in his jaundice over the last week. He denies other associated or accompanying signs or symptoms. He admits a prior similar episode related to his alcoholic hepatitis and hepatic encephalopathy earlier this year. He admits that he is currently drinking beer on a regular basis but has reduced his consumption to less than 1 (40 ounce) beer per day, just prior to his current illness he was drinking 2-3 (40 ounce) beers per day. He has not identified any aggravating or ameliorating factors for his progressive generalized muscular weakness. In the emergency room he was found to have an elevated serum ammonia and a potassium of 2.4. He was subsequently admitted to hospital for further evaluation treatment on IMCU. Past Medical History Cardiac Medical History: Reports: Hypertension Denies: Coronary Artery Disease, Myocardial Infarction Pulmonary Medical History: Reports: Pneumonia Denies: Asthma, Chronic Obstructive Pulmonary Disease (COPD) EENT Medical History: Reports: Eyes - Had strabismus corrected as a child, glaucoma right eye, blind in left eye Denies: Cataracts, Ears - Hearing aids Neurological Medical History: Denies: Hemorrhagic CVA, Ischemic CVA, Seizures Endocrine Medical History: Denies: Diabetes Mellitus Type 1, Diabetes Mellitus Type 2, Hyperthyroidism, Hypothyroidism Renal/ Medical History: Denies: Chronic Kidney Disease, Nephrolithiasis Malignancy Medical History: Reports: None GI Medical History: Reports: Cirrhosis - Alcoholic cirrhosis, Hepatitis - Alcoholic hepatitis, Peptic Ulcer Disease, Other - Hepatic encephalopathy Denies: Crohn's Disease, Gastroesophageal Reflux Disease, Ulcerative Colitis Musculoskeltal Medical History: Reports: Arthritis Denies: Gout Skin Medical History: Denies: Eczema, Psoriasis Psychiatric Medical History: Reports: Alcohol Dependency, Depression, Tobacco Dependency Denies: Substance Abuse Traumatic Medical History: Reports: None Hematology: Denies: Anemia, Bleeding Tendencies Infectious Medical History: Reports: None Past Surgical History Past Surgical History: EGD's, colonoscopy, breast surgery to remove a cyst in each breast, ganglion cyst of wrist. Past Surgical History: Reports: Orthopedic Surgery - Wrist fracture, ankle fracture, Other - Childhood strabismus correction, Social History Information Source: Patient Lives with: Alone Smoking Status: Never Smoker - Uses smokeless tobacco on a regular basis Frequency of Alcohol Use: Heavy - Currently consuming less than 1 (40 ounce) beer daily on average. Was drinking 2 or 3 (40 ounce) beers per day prior to illness. Admits much heavier consumption (4-5 40 ounce beers per day) in the past. Denies ever having alcohol withdrawal symptoms. Hx Recreational Drug Use: No Drugs: None Hx Prescription Drug Abuse: No - Advance Directive Resuscitation Status: Full Code Surrogate healthcare decision maker:: Maryana Durham Family History Family History: CAD, COPD, DM, Hypertension, Malignancy, Other - Alcoholism, glaucoma Parental Family History Reviewed: Yes Children Family History Reviewed: No Sibling(s) Family History Reviewed.: Yes Medication/Allergy Home Medications: Amitriptyline HCl [Elavil 25 mg Tablet] 25 mg PO HSP PRN 01/16/19 Baclofen [Baclofen 10 mg Tablet] 10 mg PO Q12HP PRN 01/16/19 Pantoprazole Sodium [Protonix [address] Tablet] 20 mg PO DAILY 01/16/19 Allergies/Adverse Reactions: No Known Allergies Allergy (Verified 10/02/16 09:12) Review of Systems Constitutional: PRESENT: as per HPI, anorexia, weakness - Generalized muscular weakness, weight loss - Secondary to anorexia. ABSENT: chills, fever(s), night sweats Eyes: PRESENT: visual disturbances - Blind in left eye, decreased vision in right eye due to glaucoma. ABSENT: other - Eye pain Ears: ABSENT: hearing changes, other - Ear pain Nose, Mouth, and Throat: ABSENT: mouth pain, sore throat Cardiovascular: ABSENT: chest pain, palpitations Respiratory: ABSENT: cough, dyspnea Gastrointestinal: PRESENT: as per HPI, nausea, vomiting. ABSENT: abdominal pain, constipation, diarrhea Genitourinary: ABSENT: dysuria, hematuria Musculoskeletal: PRESENT: as per HPI, muscle weakness. ABSENT: back pain, joint swelling Integumentary: ABSENT: pruritus, rash Neurological: PRESENT: as per HPI, lack of coordination - Wobbly: Dizzy and off- balance when attempting to stand or walk, weakness - Generalized muscular weakness. ABSENT: confusion, convulsions, focal weakness, memory loss, syncope Psychiatric: ABSENT: anxiety, depression, hallucinations Endocrine: ABSENT: cold intolerance, heat intolerance Hematologic/Lymphatic: ABSENT: easy bleeding, easy bruising Allergic/Immunologic: ABSENT: seasonal rhinorrhea Physical Exam Vital Signs: Intake & Output 01/14/19 01/15/19 01/16/19 23:59 23:59 23:59 Weight 80.739 kg General appearance: PRESENT: no acute distress, cooperative Head exam: PRESENT: atraumatic, normocephalic Eye exam: PRESENT: conjunctiva pink, scleral icterus - Mild. ABSENT: conjun ctival injection Ear exam: PRESENT: normal external ear exam. ABSENT: bleeding, drainage Mouth exam: PRESENT: dry mucosa, neck supple Neck exam: ABSENT: thyromegaly, tracheal deviation Respiratory exam: PRESENT: clear to auscultation michele, symmetrical, unlabored Cardiovascular exam: PRESENT: RRR. ABSENT: clicks, gallop, rubs Pulses: PRESENT: normal radial pulses, normal dorsalis pedis pul Vascular exam: PRESENT: normal capillary refill. ABSENT: pallor GI/Abdominal exam: PRESENT: ascites - Minimal ascites, distended - Mildly distended, normal bowel sounds. ABSENT: tenderness Rectal exam: PRESENT: deferred Extremities exam: ABSENT: joint swelling, pedal edema Musculoskeletal exam: ABSENT: deformity, dislocation Neurological exam: PRESENT: alert, oriented to person, oriented to place, orie nted to time, oriented to situation, CN II-XII grossly intact. ABSENT: motor sensory deficit Psychiatric exam: PRESENT: appropriate affect, normal mood Skin exam: PRESENT: dry, intact, jaundice - Mild, warm. ABSENT: rash, urticaria Results Laboratory Results: 01/16/19 18:00 01/16/19 18:00 01/16/19 01/16/19 01/16/19 18:00 18:00 18:00 WBC 8.0 RBC 2.85 L Hgb 9.6 L Hct 27.1 L MCV 95 MCH 33.6 H MCHC 35.3 RDW 16.3 H Plt Count 137 L Seg Neutrophils % 68.5 VBG pH VBG pCO2 VBG HCO3 VBG Base Excess Sodium 130.4 L Potassium 2.4 L* Chloride 91 L Carbon Dioxide 28 Anion Gap 11 BUN 4 L Creatinine 0.47 L Est GFR ( Amer) > 60 Glucose 95 Lactic Acid 3.5 H Calcium 7.8 L Magnesium Total Bilirubin 4.8 H AST 103 H Alkaline Phosphatase 195 H Ammonia Total Protein 7.0 Albumin 2.9 L Urine Color Urine Appearance Urine pH Ur Specific [place] Urine Protein Urine Glucose (UA) Urine Ketones Urine Blood Urine Nitrite Ur Leukocyte Esterase Urine WBC (Auto) 01/16/19 01/16/19 01/16/19 18:00 18:00 18:42 WBC RBC Hgb Hct MCV MCH MCHC RDW Plt Count Seg Neutrophils % VBG pH VBG pCO2 VBG HCO3 VBG Base Excess Sodium Potassium Chloride Carbon Dioxide Anion Gap BUN Creatinine Est GFR ( Amer) Glucose Lactic Acid Calcium Magnesium 1.9 Total Bilirubin AST Alkaline Phosphatase Ammonia 64.2 H Total Protein Albumin Urine Color JOSE RAUL Urine Appearance CLEAR Urine pH 7.0 Ur Specific [place] 1.008 Urine Protein NEGATIVE Urine Glucose (UA) NEGATIVE Urine Ketones TRACE H Urine Blood NEGATIVE Urine Nitrite NEGATIVE Ur Leukocyte Esterase NEGATIVE Urine WBC (Auto) 1 01/16/19 19:55 WBC RBC Hgb Hct MCV MCH MCHC RDW Plt Count Seg Neutrophils % VBG pH 7.44 H VBG pCO2 33.5 L VBG HCO3 22.0 VBG Base Excess -1.7 Sodium Potassium Chloride Carbon Dioxide Anion Gap BUN Creatinine Est GFR ( Amer) Glucose Lactic Acid Calcium Magnesium Total Bilirubin AST Alkaline Phosphatase Ammonia Total Protein Albumin Urine Color Urine Appearance Urine pH Ur Specific [place] Urine Protein Urine Glucose (UA) Urine Ketones Urine Blood Urine Nitrite Ur Leukocyte Esterase Urine WBC (Auto) 01/16/19 18:00 Troponin I < 0.012 Impressions: Chest X-Ray 01/16/19 16:05 IMPRESSION: NO ACUTE RADIOGRAPHIC FINDING IN THE CHEST. Head CT 01/16/19 16:29 IMPRESSION: NORMAL BRAIN CT WITHOUT CONTRAST. EVIDENCE OF ACUTE STROKE: NO. Assessment and Plan - Diagnosis (1) Hepatic encephalopathy Is this a current diagnosis for this admission?: Yes Plan: Patient will be treated with oral lactulose and dietary adjustments. His serum ammonia and liver function studies will be followed on a daily basis. Patient will have available Nubain 5 to 10 mg IV every 3 hours on a as needed basis for pain. Daily CBCs and metabolic profiles with magnesium and phosphorus levels will be obtained. (2) Anemia Qualifiers: Anemia type: unspecified type Qualified Code(s): D64.9 - Anemia, unspecified Is this a current diagnosis for this admission?: Yes Plan: An anemia profile will be obtained and stools for occult blood will also be obtained. (3) Hypokalemia Is this a current diagnosis for this admission?: Yes Plan: Patient's potassium level will be corrected with intravenous and oral repletion. Daily metabolic profiles will be obtained. (4) Hyponatremia Is this a current diagnosis for this admission?: Yes Plan: Patient's hyponatremia will be corrected with intravenous fluids containing sodium. Patient's metabolic profile will be monitored on a daily basis. (5) Alcohol use disorder, severe, dependence Is this a current diagnosis for this admission?: Yes Plan: Patient has been advised to discontinue alcohol use and counseled briefly at the bedside. Valium 10 mg IV q. one hour as needed severe withdrawal symptoms will be available as will be Thorazine 25 mg IV every 8 hours as needed agitation/delirium/hallucinations. Patient will be observed closely for early signs of acute alcohol withdrawal. (6) Dependence on nicotine from chewing tobacco Qualifiers: Substance use status: uncomplicated Qualified Code(s): F17.220 - Nicotine dependence, chewing tobacco, uncomplicated Is this a current diagnosis for this admission?: Yes Plan: Smokeless tobacco use use cessation is advised and counseled briefly at bedside. A nicotine replacement patch is available for the patient's use. - Time Time Spent with patient: 25-34 minutes Medications reviewed and adjusted accordingly: Yes Anticipated discharge: Home - Inpatient Certification Based on my medical assessment, after consideration of the patient's comorbidities, presenting symptoms, or acuity I expect that the services needed warrant INPATIENT care.: Yes I certify that my determination is in accordance with my understanding of Medicare's requirements for reasonable and necessary INPATIENT services [42 CFR 412.3e].: Yes Medical Necessity: Significant Comorbidiites Make Outpatient Treatment Too Risky, Need Close Monitoring Due to Risk of Patient Decompensation, Need For IV Fluids, Need For Continuous Telemetry Monitoring, Need for Neurological Checks, Risk of Complication if Not Cared For in Hospital, Risk of Diagnosis Which Will Require Inpatient Eval/Care/Monitoring
[2019-01-17 07:50] LABS: INTERNATIONAL RATION (INR) 2.21; PROTHROMBIN TIME 24.9 SEC (11.4-15.4)
[2019-01-17 07:51] LABS: HEMATOCRIT 23.1 % (37.9-51.0); HEMOGLOBIN 8.2 g/dL (13.5-17.0); MEAN CORPUSCULAR HEMOGLOBIN 33.7 pg (27.0-33.4); MEAN CORPUSCULAR HGB CONC 35.4 g/dL (32.0-36.0); MEAN CORPUSCULAR VOLUME 95 fl (80-97); PLATELET COUNT 120 10^3/uL (150-450); RED BLOOD COUNT 2.43 10^6/uL (4.35-5.55)
[2019-01-17 08:00] LABS: ALBUMIN 2.1 g/dL (3.5-5.0); ALKALINE PHOSPHATASE 144 U/L (38-126); ANION GAP 7 (5-19); ASPARTATE AMINO TRANSFERASE 80 U/L (17-59); BILIRUBIN,DIRECT 1.9 mg/dL (0.0-0.4); BILIRUBIN,TOTAL 3.7 mg/dL (0.2-1.3); BLOOD UREA NITROGEN 3 mg/dL (7-20); CALCIUM 7.1 mg/dL (8.4-10.2); CARBON DIOXIDE 25 mmol/L (22-30); CHLORIDE 101 mmol/L (98-107); CHOLESTEROL 91.92 mg/dL (0-200); GLUCOSE 141 mg/dL (75-110); TOTAL PROTEIN 5.5 g/dL (6.3-8.2); TRIGLYCERIDES 94 mg/dL (<150)
[2019-01-17 08:11] LABS: DIRECT LDL 63 mg/dL (<100)
[2019-01-17 08:20] LABS: POTASSIUM 2.6 mmol/L (3.6-5.0)
[2019-01-17] MEDS: SODIUM BICARBONATE 650 MG TABLET PO SCH ×3 (08:34→16:32)
[2019-01-17] MEDS: POTASSIUM CHLORIDE 10 MEQ CAPSULE.ER PO SCH ×3 (08:35→16:32)
[2019-01-17] MEDS: DOCUSATE SODIUM 100 MG CAPSULE PO SCH ×2 (10:39→18:25)
[2019-01-17] MEDS: LACTULOSE SYRUP 20 GM/30 ML UDCUP PO SCH ×2 (10:39→18:40)
[2019-01-17] MEDS ORDERED: ACETAMINOPHEN 325 MG TABLET PO PRN (15:48)
[2019-01-17] MEDS ORDERED: LORAZEPAM INJ 2 MG/1 ML VIAL IV PRN ×2 (17:07→17:16)
[2019-01-17] MEDS ORDERED: FOLIC ACID/VITAMIN B COMP W-C CAPSULE PO SCH (17:15)
--- NOTE | 2019-01-17 17:23 | PDOC PROGRESS REPORT ---
Subjective Progress Note for:: 01/17/19 Subjective:: LEXY AC JR is a 53 year old male who presents the emergency room with a one-week history of weakness. Patient admits progressive generalized muscle weakness developing over the last week becoming severe at present. Patient's weakness has been noted primarily in his ability to stand and walk. He admits several falls and near falls related to his weakness, and today he felt very wobbly just trying to stand. He admits a decreased appetite, rare episodes of nausea with a small amount of emesis and an increase in his jaundice over the last week. He denies other associated or accompanying signs or symptoms. He admits a prior similar episode related to his alcoholic hepatitis and hepatic encephalopathy earlier this year. He admits that he is currently drinking beer on a regular basis but has reduced his consumption to less than 1 (40 ounce) beer per day, just prior to his current illness he was drinking 2-3 (40 ounce) beers per day. He has not identified any aggravating or ameliorating factors for his progressive generalized muscular weakness. In the emergency room he was found to have an elevated serum ammonia and a potassium of 2.4. He was subsequently admitted to hospital for further evaluation treatment on IMCU. 01/17/2019. No acute events overnight. Patient comfortably sitting in bed, alert oriented x3, in no apparent distress, cooperative with physical examination. Denies any anxiety, visual or auditory delusions, denies any nausea, vomiting, diarrhea, constipation or any urinary symptoms. Appetite and weakness has improved. P.o. tolerant, ambulatory, having normal bowel and bladder movement. Reason For Visit: HEPATIC ENCEPHALOPATHY, HYPOKALEMIA, Physical Exam Vital Signs: Temp Pulse Resp BP Pulse Ox 97.8 F 104 H 16 108/69 98 01/17/19 15:19 01/17/19 15:19 01/17/19 15:19 01/17/19 15:19 01/17/19 15:19 Intake & Output 01/16/19 01/17/19 01/18/19 06:59 06:59 06:59 Intake Total 1050 1960 Output Total 675 500 Balance 375 1460 Weight 73.9 kg General appearance: PRESENT: no acute distress, well-developed, well-nourished Head exam: PRESENT: atraumatic, normocephalic Neck exam: ABSENT: carotid bruit, JVD, lymphadenopathy, thyromegaly Respiratory exam: PRESENT: clear to auscultation michele. ABSENT: rales, rhonchi, wheezes Cardiovascular exam: PRESENT: RRR. ABSENT: diastolic murmur, rubs, systolic murmur GI/Abdominal exam: PRESENT: distended, normal bowel sounds, soft. ABSENT: guarding, mass, organolmegaly, rebound, tenderness Neurological exam: PRESENT: alert, awake, oriented to person, oriented to place, oriented to time, oriented to situation, CN II-XII grossly intact. ABSENT: motor sensory deficit Results Laboratory Results: 01/17/19 07:35 01/17/19 07:35 01/16/19 01/16/19 01/16/19 18:00 18:00 18:00 WBC 8.0 RBC 2.85 L Hgb 9.6 L Hct 27.1 L MCV 95 MCH 33.6 H MCHC 35.3 RDW 16.3 H Plt Count 137 L Seg Neutrophils % 68.5 Retic Count (auto) VBG pH VBG pCO2 VBG HCO3 VBG Base Excess Sodium 130.4 L Potassium 2.4 L* Chloride 91 L Carbon Dioxide 28 Anion Gap 11 BUN 4 L Creatinine 0.47 L Est GFR ( Amer) > 60 Glucose 95 Lactic Acid 3.5 H Calcium 7.8 L Phosphorus Magnesium Iron TIBC % Saturation Ferritin Total Bilirubin 4.8 H AST 103 H Alkaline Phosphatase 195 H Ammonia Total Protein 7.0 Albumin 2.9 L Triglycerides Cholesterol LDL Cholesterol Direct VLDL Cholesterol HDL Cholesterol Vitamin B12 Folate TSH Free T4 Free T3 pg/mL Urine Color Urine Appearance Urine pH Ur Specific [place] Urine Protein Urine Glucose (UA) Urine Ketones Urine Blood Urine Nitrite Ur Leukocyte Esterase Urine WBC (Auto) 01/16/19 01/16/19 01/16/19 18:00 18:00 18:00 WBC RBC Hgb Hct MCV MCH MCHC RDW Plt Count Seg Neutrophils % Retic Count (auto) VBG pH VBG pCO2 VBG HCO3 VBG Base Excess Sodium Potassium Chloride Carbon Dioxide Anion Gap BUN Creatinine Est GFR ( Amer) Glucose Lactic Acid Calcium Phosphorus Magnesium 1.9 Iron TIBC % Saturation Ferritin Total Bilirubin AST Alkaline Phosphatase Ammonia 64.2 H Total Protein Albumin Triglycerides Cholesterol LDL Cholesterol Direct VLDL Cholesterol HDL Cholesterol Vitamin B12 Folate TSH 1.62 Free T4 1.68 Free T3 pg/mL 2.27 L Urine Color Urine Appearance Urine pH Ur Specific [place] Urine Protein Urine Glucose (UA) Urine Ketones Urine Blood Urine Nitrite Ur Leukocyte Esterase Urine WBC (Auto) 01/16/19 01/16/19 01/16/19 18:00 18:00 18:42 WBC RBC Hgb Hct MCV MCH MCHC RDW Plt Count Seg Neutrophils % Retic Count (auto) 1.99 VBG pH VBG pCO2 VBG HCO3 VBG Base Excess Sodium Potassium Chloride Carbon Dioxide Anion Gap BUN Creatinine Est GFR ( Amer) Glucose Lactic Acid Calcium Phosphorus Magnesium Iron 105.7 TIBC 168 L % Saturation 63 Ferritin > 1000.00 H Total Bilirubin AST Alkaline Phosphatase Ammonia Total Protein Albumin Triglycerides Cholesterol LDL Cholesterol Direct VLDL Cholesterol HDL Cholesterol Vitamin B12 > 1000.0 H Folate 2.84 TSH Free T4 Free T3 pg/mL Urine Color JOSE RAUL Urine Appearance CLEAR Urine pH 7.0 Ur Specific [place] 1.008 Urine Protein NEGATIVE Urine Glucose (UA) NEGATIVE Urine Ketones TRACE H Urine Blood NEGATIVE Urine Nitrite NEGATIVE Ur Leukocyte Esterase NEGATIVE Urine WBC (Auto) 1 01/16/19 01/16/19 01/17/19 19:55 23:32 03:43 WBC RBC Hgb Hct MCV MCH MCHC RDW Plt Count Seg Neutrophils % Retic Count (auto) VBG pH 7.44 H VBG pCO2 33.5 L VBG HCO3 22.0 VBG Base Excess -1.7 Sodium Potassium Chloride Carbon Dioxide Anion Gap BUN Creatinine Est GFR ( Amer) Glucose Lactic Acid 3.1 H 2.1 Calcium Phosphorus Magnesium Iron TIBC % Saturation Ferritin Total Bilirubin AST Alkaline Phosphatase Ammonia Total Protein Albumin Triglycerides Cholesterol LDL Cholesterol Direct VLDL Cholesterol HDL Cholesterol Vitamin B12 Folate TSH Free T4 Free T3 pg/mL Urine Color Urine Appearance Urine pH Ur Specific [place] Urine Protein Urine Glucose (UA) Urine Ketones Urine Blood Urine Nitrite Ur Leukocyte Esterase Urine WBC (Auto) 01/17/19 01/17/19 01/17/19 07:35 07:35 07:35 WBC 5.0 RBC 2.43 L Hgb 8.2 L Hct 23.1 L MCV 95 MCH 33.7 H MCHC 35.4 RDW 17.0 H Plt Count 120 L Seg Neutrophils % Retic Count (auto) VBG pH VBG pCO2 VBG HCO3 VBG Base Excess Sodium 133.0 L Potassium 2.6 L* Chloride 101 Carbon Dioxide 25 Anion Gap 7 BUN 3 L Creatinine 0.42 L Est GFR ( Amer) > 60 Glucose 141 H Lactic Acid 1.9 Calcium 7.1 L Phosphorus 1.0 L Magnesium 1.9 Iron TIBC % Saturation Ferritin Total Bilirubin 3.7 H AST 80 H Alkaline Phosphatase 144 H Ammonia Total Protein 5.5 L Albumin 2.1 L Triglycerides 94 Cholesterol 91.92 LDL Cholesterol Direct 63 VLDL Cholesterol 19.0 HDL Cholesterol 10 L Vitamin B12 Folate TSH Free T4 Free T3 pg/mL Urine Color Urine Appearance Urine pH Ur Specific [place] Urine Protein Urine Glucose (UA) Urine Ketones Urine Blood Urine Nitrite Ur Leukocyte Esterase Urine WBC (Auto) 01/17/19 07:35 WBC RBC Hgb Hct MCV MCH MCHC RDW Plt Count Seg Neutrophils % Retic Count (auto) VBG pH VBG pCO2 VBG HCO3 VBG Base Excess Sodium Potassium Chloride Carbon Dioxide Anion Gap BUN Creatinine Est GFR ( Amer) Glucose Lactic Acid Calcium Phosphorus Magnesium Iron TIBC % Saturation Ferritin Total Bilirubin AST Alkaline Phosphatase Ammonia 97.3 H Total Protein Albumin Triglycerides Cholesterol LDL Cholesterol Direct VLDL Cholesterol HDL Cholesterol Vitamin B12 Folate TSH Free T4 Free T3 pg/mL Urine Color Urine Appearance Urine pH Ur Specific [place] Urine Protein Urine Glucose (UA) Urine Ketones Urine Blood Urine Nitrite Ur Leukocyte Esterase Urine WBC (Auto) 01/16/19 18:00 Troponin I < 0.012 Impressions: Chest X-Ray 01/16/19 16:05 IMPRESSION: NO ACUTE RADIOGRAPHIC FINDING IN THE CHEST. Head CT 01/16/19 16:29 IMPRESSION: NORMAL BRAIN CT WITHOUT CONTRAST. EVIDENCE OF ACUTE STROKE: NO. Assessment and Plan - Diagnosis (1) Hepatic encephalopathy Is this a current diagnosis for this admission?: Yes Plan: Ammonia level 97.3 however alert oriented x3. Continue oral lactulose titrate to have 3 soft bowel movements every 24 hours. Hepatic diet. Monitor electrolytes, replace as needed. (2) Alcohol use disorder, severe, dependence Is this a current diagnosis for this admission?: Yes Plan: Chronic daily EtOH abuse. Moist on abstinence. Monitor for withdrawal. DT protocol. (3) Hypokalemia Is this a current diagnosis for this admission?: Yes Plan: Due to low p.o. intake. No EKG changes. Admit to telemetry. Continue supplemental potassium. Daily potassium level. (4) Hyponatremia Is this a current diagnosis for this admission?: Yes Plan: Patient's hyponatremia will be corrected with intravenous fluids containing sodium. Patient's metabolic profile will be monitored on a daily basis.
[2019-01-17] MEDS ORDERED: POTASSIUM CHLORIDE 10 MEQ CAPSULE.ER PO ONE (19:00)
[2019-01-17] MEDS: MAGNESIUM OXIDE 400 MG TABLET PO SCH (19:45)
[2019-01-18 04:18] LABS: HEMATOCRIT 25.8 % (37.9-51.0); MEAN CORPUSCULAR HEMOGLOBIN 33.3 pg (27.0-33.4); MEAN CORPUSCULAR HGB CONC 34.8 g/dL (32.0-36.0); MEAN CORPUSCULAR VOLUME 96 fl (80-97); PLATELET COUNT 124 10^3/uL (150-450)
[2019-01-18 04:25] LABS: INTERNATIONAL RATION (INR) 1.99; PROTHROMBIN TIME 22.9 SEC (11.4-15.4)
[2019-01-18 04:37] LABS: ALBUMIN 2.2 g/dL (3.5-5.0); ALKALINE PHOSPHATASE 162 U/L (38-126); ANION GAP 8 (5-19); ASPARTATE AMINO TRANSFERASE 98 U/L (17-59); BILIRUBIN,DIRECT 1.8 mg/dL (0.0-0.4); BILIRUBIN,TOTAL 3.7 mg/dL (0.2-1.3); CALCIUM 7.5 mg/dL (8.4-10.2); CARBON DIOXIDE 23 mmol/L (22-30); CHLORIDE 102 mmol/L (98-107); GLUCOSE 113 mg/dL (75-110); TOTAL PROTEIN 5.9 g/dL (6.3-8.2)
[2019-01-18 04:44] LABS: BLOOD UREA NITROGEN < 2 mg/dL (7-20)
[2019-01-18] MEDS: HEPARIN SOD (PORCINE) 5,000 UNIT/ML 1 ML VIAL SUBCUT SCH ×2 (05:02→15:18)
[2019-01-18] MEDS: MAGNESIUM OXIDE 400 MG TABLET PO SCH (09:39)
[2019-01-18] MEDS: FAMOTIDINE 20 MG TABLET PO SCH (09:39)
[2019-01-18] MEDS: SPIRONOLACTONE 25 MG TABLET PO SCH (09:39)
[2019-01-18] MEDS: DOCUSATE SODIUM 100 MG CAPSULE PO SCH (09:40)
[2019-01-18] MEDS ORDERED: LACTULOSE SYRUP 20 GM/30 ML UDCUP PO SCH ×2 (10:00→18:00)
[2019-01-18] MEDS ORDERED: POTASSIUM CHLORIDE 10 MEQ CAPSULE.ER PO SCH (10:00)
[2019-01-18] MEDS ORDERED: POTASSIUM CHLORIDE 10 MEQ CAPSULE.ER PO ONE (10:05)
[2019-01-18] MEDS ORDERED: FOLIC ACID/VITAMIN B COMP W-C CAPSULE PO SCH (16:00)
[2019-01-18 16:41] VITALS: BP 126/78
--- NOTE | 2019-01-20 17:56 | PDOC DISCHARGE SUMMARY ---
General - Admit/Disc Date/PCP Admission Date/Primary Care Provider: 01/16/19 19:59 LOAN ALEXIS MD Discharge Date: 01/18/19 - Discharge Diagnosis (1) Hepatic encephalopathy Is this a current diagnosis for this admission?: Yes (2) Alcohol use disorder, severe, dependence Is this a current diagnosis for this admission?: Yes (3) Hypokalemia Is this a current diagnosis for this admission?: Yes (4) Hyponatremia Is this a current diagnosis for this admission?: Yes (5) Chronic alcoholic liver disease Is this a current diagnosis for this admission?: Yes (6) Anemia Is this a current diagnosis for this admission?: Yes - Additional Information Resuscitation Status: Full Code Discharge Diet: As Tolerated, Cardiac Discharge Activity: Activity As Tolerated, Balance Activity w/Rest Prescriptions: Lactulose [Kristalose 20 gm Packet] 20 gm PO BID 30 Days #60 packet Magnesium Oxide [Mag-Ox 400 mg Tablet] 400 mg PO BID 7 Days #14 tablet Potassium Chloride 30 meq PO BID 7 Days #14 tablet.er Home Medications: Amitriptyline HCl [Elavil 25 mg Tablet] 25 mg PO HSP PRN 01/16/19 Baclofen [Baclofen 10 mg Tablet] 10 mg PO Q12HP PRN 01/16/19 Pantoprazole Sodium [Protonix [address] Tablet] 20 mg PO DAILY 01/16/19 Lactulose [Kristalose 20 gm Packet] 20 gm PO BID 30 Days #60 packet 01/18/19 Magnesium Oxide [Mag-Ox 400 mg Tablet] 400 mg PO BID 7 Days #14 tablet 01/18/19 Potassium Chloride 30 meq PO BID 7 Days #14 tablet.er 01/18/19 History of Present Illness History of Present Illness: LEXY AC JR is a 53 year old male who presents the emergency room with a one-week history of weakness. Patient admits progressive generalized muscle weakness developing over the last week becoming severe at present. Patient's weakness has been noted primarily in his ability to stand and walk. He admits several falls and near falls related to his weakness, and today he felt very wobbly just trying to stand. He admits a decreased appetite, rare episodes of nausea with a small amount of emesis and an increase in his jaundice over the last week. He denies other associated or accompanying signs or symptoms. He admits a prior similar episode related to his alcoholic hepatitis and hepatic encephalopathy earlier this year. He admits that he is currently drinking beer on a regular basis but has reduced his consumption to less than 1 (40 ounce) beer per day, just prior to his current illness he was drinking 2-3 (40 ounce) beers per day. He has not identified any aggravating or ameliorating factors for his progressive generalized muscular weakness. In the emergency room he was found to have an elevated serum ammonia and a potassium of 2.4. He was subsequently admitted to hospital for further evaluation treatment on IMCU. Hospital Course Hospital Course: (1) Hepatic encephalopathy Due to underlying liver cirrhosis caused by chronic alcoholism. Ammonia level 97.3 on admission however alert oriented x3. Was a started on oral lactulose titrated to have 3 soft bowel movements every 24 hours. Was a started on fall, seizure, aspiration precautions. At the time of discharge alert oriented x3, ambulatory, p.o. tolerant. Discharged on lactulose and appointment was made for him to see Dr. Maxwell structure[facility] as outpatient. (2) Alcohol use disorder, severe, dependence Chronic daily heavy EtOH abuse. Consult on abstinence. Was started on p.o. folic acid, thiamine and multivitamins. (3) Hypokalemia Due to low p.o. intake. No EKG changes. Replenished. Potassium WNL at the time of discharge. Was discharged on p.o. potassium for another week. Was encouraged to follow-up with PCP as outpatient. (4) Hyponatremia Likely delusional hyponatremia due to underlying cirrhosis. Patient was started on volume restriction and his sodium was 133.8 at the time of discharge. Encouraged to follow hepatic diet and volume restriction. (5) Chronic alcoholic liver disease Most likely already have advanced cirrhosis. History of variceal bleeding in the past. INR 1.99. Globin 9.0. Platelet 124. Total bili 3.7. Direct bili 1.8. Albumin 2.2. AST 98. ALT 31. Alkaline phosphatase 162. Patient was encouraged to wait until evaluated by structurer on Saturday however he was very anxious to leave and wanted to instead follow-up with structurer outpatient. Outpatient gastroenterology ointment arranged with Dr. Maxwell. (6) Anemia Anemia of chronic disease likely due to underlying severe liver disease. Denies any hematemesis, hemoptysis, melena, hematochezia or any nosebleeds. Serum iron 105.7, TIBC 168, saturation 63%, ferritin >1000, B12 >60631, folic acid 2. Hemoglobin was monitored and remained stable. No sign of bleeding. Physical Exam Vital Signs: Temp Pulse Resp BP Pulse Ox 98.0 F 114 H 18 126/78 H 98 01/18/19 16:39 01/18/19 16:39 01/18/19 16:39 01/18/19 16:39 01/18/19 16:39 Intake & Output 01/19/19 01/20/19 01/21/19 06:59 06:59 06:59 Intake Total 480 Balance 480 Results Laboratory Results: 01/18/19 04:02 01/18/19 14:35 01/16/19 18:00 Troponin I < 0.012 Impressions: Chest X-Ray 01/16/19 16:05 IMPRESSION: NO ACUTE RADIOGRAPHIC FINDING IN THE CHEST. Head CT 01/16/19 16:29 IMPRESSION: NORMAL BRAIN CT WITHOUT CONTRAST. EVIDENCE OF ACUTE STROKE: NO. Qualifiers PATIENT BEING DISCHARGED WITH ANY OF THE FOLLOWING DIAGNOSIS: No Acute Heart Failure - Is this a Heart Failure Patient?: No
== END 2019-01-18 17:00 | disposition home or self-care (01) | DRG 433 ==
LOC: ER 15:24 → EH 19:59 → 3N 23:22 → 3W 01-17 15:43
PROVIDERS: ADMIT Emergency Medicine; ATTEND Emergency Medicine
DX: K70.40 Alcoholic hepatic failure without coma (principal); F10.239 Alcohol dependence with withdrawal, unspecified; E87.1 Hypo-osmolality and hyponatremia; K70.10 Alcoholic hepatitis without ascites; K70.30 Alcoholic cirrhosis of liver without ascites; E87.6 Hypokalemia; I10 Essential (primary) hypertension; D64.9 Anemia, unspecified; F17.210 Nicotine dependence, cigarettes, uncomplicated; Y90.0 Blood alcohol level of less than 20 mg/100 ml
CPT/HCPCS: 36415; 70450; 71046; 80048; 80053; 80061; 80076; 81001; 82140; 82607; 82728; 82746; 82803; 82962; 83540; 83550; 83605; 83735; 84100; 84132; 84439; 84443; 84481; 84484; 85025; 85027; 85045; 85610; 87040; 87086; 93005; 93010; 99285; J1644; J3480; J3490; J7030; J7120

== ENCOUNTER 2019-01-20 15:09 | Inpatient (IN) | payer OTHER ==
--- NOTE | 2019-01-20 15:26 | ER Document Report ---
ED Medical Screen (RME) - General Chief Complaint: Abdominal Pain Stated Complaint: ABDOMINAL PAIN Time Seen by Provider: 01/20/19 15:15 Primary Care Provider: LOAN ALEXIS MD [Primary Care Provider] - Follow up as needed Mode of Arrival: Ambulatory Information source: Patient Notes: 53-year-old male with history of cirrhosis presents emergency department with abdominal pain. Reports he was just discharged from the hospital 922 but continues to have the pain. Reports [facility]. Patient is a ramos color very shaky with elevated heart rate. I have greeted and performed a rapid initial assessment of this patient. A comprehensive ED assessment and evaluation of the patient, analysis of test results and completion of the medical decision making process will be conducted by additional ED providers. Dictation of this chart was performed using voice recognition software; therefore, there may be some unintended grammatical errors. TRAVEL OUTSIDE OF THE [place] IN LAST 30 DAYS: No - Related Data Allergies/Adverse Reactions: No Known Allergies Allergy (Verified 01/20/19 15:16) Past Medical History - Social History Chew tobacco use (# tins/day): Yes Frequency of alcohol use: Social - Past Medical History Cardiac Medical History: Reports: Hx Hypertension Denies: Hx Coronary Artery Disease, Hx Heart Attack Pulmonary Medical History: Reports: Hx Pneumonia Denies: Hx Asthma, Hx COPD Neurological Medical History: Denies: Hx Seizures Endocrine Medical History: Denies: Hx Diabetes Mellitus Type 1, Hx Diabetes Mellitus Type 2, Hx Hyperthyroidism, Hx Hypothyroidism Renal/ Medical History: Denies: Hx Peritoneal Dialysis GI Medical History: Reports: Hx Cirrhosis - Alcoholic cirrhosis, Hx Hepatitis - Alcoholic hepatitis, Hx Endoscopy. Denies: Hx Crohn's Disease, Hx Gastroesophageal Reflux Disease, Hx Ulcerative Colitis Musculoskeltal Medical History: Reports Hx Arthritis, Denies Hx Gout Skin Medical History: Denies Hx Eczema, Denies Hx Psoriasis Psychiatric Medical History: Reports: Hx Depression Traumatic Medical History: Reports: Hx Fractures - right ankle, left wrist Infectious Medical History: Reports: Hx Hepatitis - Alcoholic hepatitis Past Surgical History: Reports: Hx Orthopedic Surgery - Wrist fracture, ankle fracture, Other - Childhood strabismus correction, - Immunizations Hx Diphtheria, Pertussis, Tetanus Vaccination: No Physical Exam - Vital signs Vitals: Temp Pulse Resp BP Pulse Ox 97.7 F 138 H 19 116/87 H 100 01/20/19 15:13 01/20/19 15:13 01/20/19 15:13 01/20/19 15:13 01/20/19 15:13 Course - Vital Signs Vital signs: Temp Pulse Resp BP Pulse Ox 97.7 F 138 H 19 116/87 H 100 01/20/19 15:13 01/20/19 15:13 01/20/19 15:13 01/20/19 15:13 01/20/19 15:13 Doctor's Discharge - Discharge Referrals: LOAN ALEXIS MD [Primary Care Provider] - Follow up as needed
[2019-01-20 16:13] LABS: ABSOLUTE BASOPHILS # (AUTO) 0.1 10^3/uL (0.0-0.2); ABSOLUTE EOSINOPHILS # (AUTO) 0.1 10^3/uL (0.0-0.6); ABSOLUTE LYMPHOCYTES (AUTO) 1.8 10^3/uL (0.5-4.7); ABSOLUTE NEUT (AUTO) 7.1 10^3/uL (1.7-8.2); BASOPHILS % (AUTO) 0.7 % (0-2); EOSINOPHILS % (AUTO) 0.9 % (0-6); HEMATOCRIT 28.3 % (37.9-51.0); HEMOGLOBIN 9.7 g/dL (13.5-17.0); LYMPHOCYTES % (AUTO) 17.5 % (13-45); MEAN CORPUSCULAR HEMOGLOBIN 33.2 pg (27.0-33.4); MEAN CORPUSCULAR HGB CONC 34.4 g/dL (32.0-36.0); MEAN CORPUSCULAR VOLUME 97 fl (80-97); MONOCYTES % (AUTO) 9.9 % (3-13); PLATELET COUNT 180 10^3/uL (150-450); RED BLOOD COUNT 2.93 10^6/uL (4.35-5.55); RED CELL DISTRIBUTION WIDTH 17.1 % (11.5-14.0); TOTAL CELLS COUNTED % (AUTO) 100 %
[2019-01-20 16:19] LABS: INTERNATIONAL RATION (INR) 1.82; PROTHROMBIN TIME 21.3 SEC (11.4-15.4)
[2019-01-20 16:20] LABS: PARTIAL THROMBOPLASTIN TIME 36.9 SEC (23.5-35.8)
[2019-01-20 16:39] LABS: BLOOD UREA NITROGEN 3 mg/dL (7-20); CALCIUM 8.2 mg/dL (8.4-10.2); CARBON DIOXIDE 23 mmol/L (22-30); CHLORIDE 101 mmol/L (98-107); GLUCOSE 114 mg/dL (75-110); POTASSIUM 3.8 mmol/L (3.6-5.0)
[2019-01-20 16:40] LABS: ALBUMIN 2.9 g/dL (3.5-5.0); ALKALINE PHOSPHATASE 199 U/L (38-126); ANION GAP 9 (5-19); ASPARTATE AMINO TRANSFERASE 141 U/L (17-59); BILIRUBIN,DIRECT 2.2 mg/dL (0.0-0.4); BILIRUBIN,TOTAL 4.9 mg/dL (0.2-1.3); TOTAL PROTEIN 7.3 g/dL (6.3-8.2)
[2019-01-20 16:42] LABS: ALCOHOL < 10 mg/dL (NONE DETECTED)
[2019-01-20] MEDS ORDERED: NORMAL SALINE 500 ML IV ONE (20:26)
[2019-01-20] MEDS ORDERED: MORPHINE SULFATE 10 MG/ML INJ IV ONE (20:26)
[2019-01-20] MEDS ORDERED: SUCRALFATE 1 GM TABLET PO ONE (20:27)
[2019-01-20] MEDS ORDERED: FAMOTIDINE 20 MG TABLET PO ONE (20:27)
[2019-01-20] MEDS ORDERED: ONDANSETRON HCL INJ/PF 4 MG/2 ML SDV IV ONE (20:27)
--- NOTE | 2019-01-20 20:28 | ER Document Report ---
ED GI/ - General Chief Complaint: Abdominal Pain Stated Complaint: ABDOMINAL PAIN Time Seen by Provider: 01/20/19 15:15 Mode of Arrival: Ambulatory Notes: Patient is a 53-year-old male with a history of chronic alcohol abuse and liver failure that comes emergency department for chief complaint of abdominal pain, heartburn, nausea, and swelling of the abdomen. He denies dizziness, chest pain, shortness of breath, fever, vomiting. He states his last drink of alcohol was last Saturday, he denies any symptoms of alcohol withdrawal. He [facility]/18/2019 and they sent him to the emergency department. He states he has never had abdominocentesis before. He denies history of pancreatitis. TRAVEL OUTSIDE OF THE [place] IN LAST 30 DAYS: No - Related Data Allergies/Adverse Reactions: No Known Allergies Allergy (Verified 01/20/19 15:16) Past Medical History - General Information source: Patient - Social History Smoking Status: Current Every Day Smoker Chew tobacco use (# tins/day): Yes Frequency of alcohol use: Heavy Drug Abuse: None Lives with: Alone Family History: CAD, COPD, DM, Hypertension, Malignancy, Other - Alcoholism, glaucoma Patient has suicidal ideation: No Patient has homicidal ideation: No - Past Medical History Cardiac Medical History: Reports: Hx Hypertension Denies: Hx Coronary Artery Disease, Hx Heart Attack Pulmonary Medical History: Reports: Hx Pneumonia Denies: Hx Asthma, Hx COPD Neurological Medical History: Denies: Hx Seizures Endocrine Medical History: Denies: Hx Diabetes Mellitus Type 1, Hx Diabetes Mellitus Type 2, Hx Hyperthyroidism, Hx Hypothyroidism Renal/ Medical History: Denies: Hx Peritoneal Dialysis GI Medical History: Reports: Hx Cirrhosis - Alcoholic cirrhosis, Hx Hepatitis - Alcoholic hepatitis, Hx Endoscopy. Denies: Hx Crohn's Disease, Hx Gastroesophageal Reflux Disease, Hx Ulcerative Colitis Musculoskeletal Medical History: Reports Hx Arthritis, Denies Hx Gout Skin Medical History: Denies Hx Eczema, Denies Hx Psoriasis Psychiatric Medical History: Reports: Hx Depression Traumatic Medical History: Reports: Hx Fractures - right ankle, left wrist Infectious Medical History: Reports: Hx Hepatitis - Alcoholic hepatitis Past Surgical History: Reports: Hx Orthopedic Surgery - Wrist fracture, ankle fracture, Other - Childhood strabismus correction, - Immunizations Hx Diphtheria, Pertussis, Tetanus Vaccination: No Hx Pneumococcal Vaccination: 06/28/15 Review of Systems - Review of Systems Constitutional: See HPI EENT: No symptoms reported Cardiovascular: No symptoms reported Respiratory: No symptoms reported Gastrointestinal: See HPI Genitourinary: No symptoms reported Male Genitourinary: No symptoms reported Musculoskeletal: No symptoms reported Skin: No symptoms reported Hematologic/Lymphatic: No symptoms reported Neurological/Psychological: No symptoms reported Physical Exam - Vital signs Vitals: Temp Pulse Resp BP Pulse Ox 97.7 F 138 H 19 116/87 H 100 01/20/19 15:13 01/20/19 15:13 01/20/19 15:13 01/20/19 15:13 01/20/19 15:13 - Notes Notes: GENERAL: Very tremulous and fidgety HEAD: Normocephalic, atraumatic. EYES: Pupils equal, round, and reactive to light. Extraocular movements intact. ENT: Oral mucosa moist, tongue midline. Oropharynx unremarkable. Airway patent. NECK: Full range of motion. Supple. Trachea midline. LUNGS: Clear to auscultation bilaterally, no wheezes, rales, or rhonchi. No respiratory distress. HEART: Tachycardic, no murmur, normal rhythm ABDOMEN: Minimal diffuse tenderness, mild distention. No rigidity. Bowel sounds present in all 4 quadrants. GENITOURINARY: Deferred EXTREMITIES: Moves all 4 extremities spontaneously. No edema, normal radial and dorsalis pedis pulses bilaterally. No cyanosis. BACK: no cervical, thoracic, lumbar midline tenderness. No saddle anesthesia, normal distal neurovascular exam. Moves all extremities in full range of motion. NEUROLOGICAL: Alert and oriented x3. Normal speech. Cranial nerves II through XII grossly intact. PSYCH: Normal affect, normal mood. SKIN: Warm, dry, normal turgor. No rashes or lesions noted. Course - Re-evaluation Re-evalutation: Initially because of patient's reports of abdominal pain and heavy alcohol abuse with his tachycardia and nausea I was concerned that patient had acute pancreatitis, he was given small dose of pain medication and 500 cc IV fluid bolus, however this had no effect on his heart rate, lipase was added to the triage work-up and was normal, and on repeat evaluation patient is very tremulous and still persistently tachycardic. As result I am concerned that patient is progressing to DTs and has developed alcohol withdrawal. CBC nonspecific, chemistry shows elevated bilirubin but this is chronic, AST is elevated. Alcohol negative. Urine drug screen negative. Given Valium. I did discuss with Dr. Lockhart. Recommends admission to the hospitalist for alcohol withdrawal. Patient is improved after Valium, tremulousness has reduced, heart rate is now in the 120s and 110s instead of 130s and 140s. I did discuss with patient at length, patient states understanding, agreement with admission to the hospital for alcohol withdrawal. Discussed with Dr. Bailey, hospitalist, patient will be admitted to the [facility] full admission. - Vital Signs Vital signs: Temp Pulse Resp BP Pulse Ox 97.4 F 113 H 20 111/64 98 01/21/19 03:06 01/21/19 03:06 01/21/19 03:06 01/21/19 03:06 01/21/19 03:06 - Laboratory Result Diagrams: 01/21/19 05:10 01/20/19 15:50 Laboratory results interpreted by me: 01/20/19 01/20/19 01/20/19 15:50 15:50 15:50 RBC 2.93 L Hgb 9.7 L Hct 28.3 L RDW 17.1 H PT 21.3 H APTT 36.9 H Sodium 133.1 L BUN 3 L Glucose 114 H Calcium 8.2 L Phosphorus Total Bilirubin 4.9 H Direct Bilirubin 2.2 H AST 141 H Alkaline Phosphatase 199 H Albumin 2.9 L Urine Protein Urine Blood Urine Bilirubin Urine Urobilinogen 01/20/19 01/20/19 15:50 21:38 RBC Hgb Hct RDW PT APTT Sodium BUN Glucose Calcium Phosphorus 2.1 L Total Bilirubin Direct Bilirubin AST Alkaline Phosphatase Albumin Urine Protein 100 H Urine Blood SMALL H Urine Bilirubin MODERATE H Urine Urobilinogen 4.0 H Discharge - Discharge Clinical Impression: Alcohol abuse, Tachycardia Alcohol withdrawal Qualifiers: Complication of substance-induced condition: with unspecified complication Qualified Code(s): F10.239 - Alcohol dependence with withdrawal, unspecified Condition: Fair Disposition: ADMITTED INPATIENT Admitting Provider: Leo (Hospitalist) Unit Admitted: [facility]
[2019-01-20] MEDS ORDERED: DIAZEPAM INJ 10 MG/2 ML DISP.SYRIN IV ONE (21:40)
[2019-01-20 22:08] LABS: APPEARANCE,URINE SLIGHTLY-CLOUDY; BILIRUBIN,URINE MODERATE (NEGATIVE); COLOR,URINE AMBER; GLUCOSE, URINE NEGATIVE (NEGATIVE); KETONES,URINE NEGATIVE (NEGATIVE); LEUKOCYTE ESTERASE,URINE NEGATIVE (NEGATIVE); NITRITE,URINE NEGATIVE (NEGATIVE); PROTEIN,URINE 100 mg/dL (NEGATIVE); URINE SPECIFIC GRAVITY 1.019
[2019-01-20] MEDS ORDERED: IPRATROPIUM/ALBUTEROL 0.5-2.5 MG/3 ML AMPUL NEB PRN (22:52)
[2019-01-20 23:10] LABS: URINE AMPHETAMINES SCREEN NEGATIVE; URINE BARBITURATES SCREEN NEGATIVE; URINE BENZODIAZEPINES SCREEN NEGATIVE; URINE COCAINE SCREEN NEGATIVE; URINE MARIJUANA (THC) SCREEN NEGATIVE; URINE METHADONE SCREEN NEGATIVE; URINE PHENCYCLIDINE SCREEN NEGATIVE
[2019-01-20 23:21] LABS: PHOSPHORUS 2.1 mg/dL (2.5-4.5)
[2019-01-20] MEDS: LORAZEPAM INJ 2 MG/1 ML VIAL IV PRN (23:26)
[2019-01-20] MEDS ORDERED: DIAZEPAM 5 MG TABLET PO ONE (23:59)
[2019-01-21] MEDS: DIAZEPAM 5 MG TABLET PO SCH ×3 (05:15→21:07)
[2019-01-21] MEDS: HEPARIN SOD (PORCINE) 5,000 UNIT/ML 1 ML VIAL SUBCUT SCH ×3 (05:15→21:08)
[2019-01-21 06:01] LABS: ABSOLUTE EOSINOPHILS # (AUTO) 0.1 10^3/uL (0.0-0.6); ABSOLUTE LYMPHOCYTES (AUTO) 1.7 10^3/uL (0.5-4.7); ABSOLUTE MONOCYTES (AUTO) 0.8 10^3/uL (0.1-1.4); ABSOLUTE NEUT (AUTO) 4.3 10^3/uL (1.7-8.2); BASOPHILS % (AUTO) 0.7 % (0-2); EOSINOPHILS % (AUTO) 1.7 % (0-6); HEMATOCRIT 23.1 % (37.9-51.0); LYMPHOCYTES % (AUTO) 24.5 % (13-45); MEAN CORPUSCULAR HEMOGLOBIN 33.7 pg (27.0-33.4); MEAN CORPUSCULAR HGB CONC 34.7 g/dL (32.0-36.0); MEAN CORPUSCULAR VOLUME 97 fl (80-97); MONOCYTES % (AUTO) 11.8 % (3-13); PLATELET COUNT 125 10^3/uL (150-450); RED BLOOD COUNT 2.38 10^6/uL (4.35-5.55); RED CELL DISTRIBUTION WIDTH 16.7 % (11.5-14.0); SEGMENTED NEUTROPHILS % (AUTO) 61.3 % (42-78); TOTAL CELLS COUNTED % (AUTO) 100 %; WHITE BLOOD COUNT 7.1 10^3/uL (4.0-10.5)
[2019-01-21 06:24] LABS: ANION GAP 5 (5-19); BLOOD UREA NITROGEN 4 mg/dL (7-20); CALCIUM 7.2 mg/dL (8.4-10.2); CARBON DIOXIDE 21 mmol/L (22-30); CHLORIDE 105 mmol/L (98-107); CHOLESTEROL 90.11 mg/dL (0-200); GLUCOSE 93 mg/dL (75-110); POTASSIUM 4.1 mmol/L (3.6-5.0); TRIGLYCERIDES 71 mg/dL (<150)
[2019-01-21 06:34] LABS: DIRECT LDL 67 mg/dL (<100)
--- NOTE | 2019-01-21 06:51 | PDOC H&P ---
History of Present Illness Admission Date/PCP: 01/20/19 23:[facility] Patient complains of: Abdominal pain History of Present Illness: LEXY AC JR is a 53 year old male with a past medical history of chronic alcohol abuse, hepatic cirrhosis and tobacco abuse. He presents 48 hours after leaving AGAINST MEDICAL ADVICE for the same complaints in addition to hepatic encephalopathy. He tachycardic, denies fever but admits abdominal distention to nausea without vomiting. His labs suggest acute alcoholic hepatitis, he receives 20 mg of Valium and referred to the hospitalist for admission. Past Medical History Cardiac Medical History: Reports: Hypertension Denies: Coronary Artery Disease, Myocardial Infarction Pulmonary Medical History: Reports: Pneumonia Denies: Asthma, Chronic Obstructive Pulmonary Disease (COPD) Neurological Medical History: Denies: Seizures Endocrine Medical History: Denies: Diabetes Mellitus Type 1, Diabetes Mellitus Type 2, Hyperthyroidism, Hypothyroidism GI Medical History: Reports: Cirrhosis - Alcoholic cirrhosis, Hepatitis - Alcoholic hepatitis Denies: Crohn's Disease, Gastroesophageal Reflux Disease, Ulcerative Colitis Musculoskeltal Medical History: Reports: Arthritis Denies: Gout Skin Medical History: Denies: Eczema, Psoriasis Psychiatric Medical History: Reports: Alcohol Dependency, Depression, Tobacco Dependency Hematology: Denies: Anemia, Bleeding Tendencies Past Surgical History Past Surgical History: Reports: Orthopedic Surgery - Wrist fracture, ankle fracture, Other - Childhood strabismus correction, Social History Information Source: Patient, [facility] Lives with: Alone Smoking Status: Current Every Day Smoker Frequency of Alcohol Use: Heavy Hx Recreational Drug Use: No Drugs: None Hx Prescription Drug Abuse: No - Advance Directive Resuscitation Status: Full Code Family History Family History: CAD, COPD, DM, Hypertension, Malignancy, Other - Alcoholism, glaucoma Parental Family History Reviewed: Yes Children Family History Reviewed: Yes Sibling(s) Family History Reviewed.: Yes Medication/Allergy Home Medications: Amitriptyline HCl [Elavil 25 mg Tablet] 25 mg PO HSP PRN 01/16/19 Baclofen [Baclofen 10 mg Tablet] 10 mg PO Q12HP PRN 01/16/19 Pantoprazole Sodium [Protonix [address] Tablet] 20 mg PO DAILY 01/16/19 Lactulose [Kristalose 20 gm Packet] 20 gm PO BID 30 Days #60 packet 01/18/19 Magnesium Oxide [Mag-Ox 400 mg Tablet] 400 mg PO BID 7 Days #14 tablet 01/18/19 Potassium Chloride 30 meq PO BID 7 Days #14 tablet.er 01/18/19 Allergies/Adverse Reactions: No Known Allergies Allergy (Verified 01/20/19 15:16) Review of Systems ROS unobtainable: Due to mental status Physical Exam Vital Signs: Temp Pulse Resp BP Pulse Ox 97.4 F 113 H 20 111/64 98 01/21/19 03:06 01/21/19 03:06 01/21/19 03:06 01/21/19 03:06 01/21/19 03:06 Intake & Output 01/19/19 01/20/19 01/21/19 11:59 11:59 11:59 Intake Total 500 Output Total 0 Balance 500 Weight 79.2 kg General appearance: PRESENT: disheveled, mild distress, other - icteric, temporal wasting, chronically ill-appearing. ABSENT: cooperative Head exam: PRESENT: atraumatic, normocephalic Eye exam: PRESENT: conjunctiva pink, EOMI, PERRLA, scleral icterus Ear exam: PRESENT: normal external ear exam Mouth exam: PRESENT: moist, tongue midline Neck exam: ABSENT: carotid bruit, JVD, lymphadenopathy, thyromegaly Respiratory exam: PRESENT: clear to auscultation michele. ABSENT: rales, rhonchi, wheezes Cardiovascular exam: PRESENT: RRR. ABSENT: diastolic murmur, rubs, systolic murmur Pulses: PRESENT: normal dorsalis pedis pul Vascular exam: PRESENT: normal capillary refill GI/Abdominal exam: PRESENT: ascites, diminished bowel sounds, distended, normal bowel sounds, soft. ABSENT: guarding, mass, organolmegaly, rebound, tenderness Rectal exam: PRESENT: deferred Extremities exam: PRESENT: full ROM. ABSENT: calf tenderness, clubbing, pedal edema Neurological exam: PRESENT: altered, oriented to person, oriented to place, oriented to situation, CN II-XII grossly intact Psychiatric exam: PRESENT: agitated, flat affect, unusual affect Skin exam: PRESENT: dry, intact, warm. ABSENT: cyanosis, rash Results Laboratory Results: 01/21/19 05:10 01/21/19 05:10 01/20/19 01/20/19 01/20/19 15:50 15:50 15:50 WBC 10.0 RBC 2.93 L Hgb 9.7 L Hct 28.3 L MCV 97 MCH 33.2 MCHC 34.4 RDW 17.1 H Plt Count 180 Seg Neutrophils % 71.0 Sodium 133.1 L Potassium 3.8 Chloride 101 Carbon Dioxide 23 Anion Gap 9 BUN 3 L Creatinine 0.52 Est GFR ( Amer) > 60 Glucose 114 H Calcium 8.2 L Phosphorus Magnesium Total Bilirubin 4.9 H AST 141 H Alkaline Phosphatase 199 H Total Protein 7.3 Albumin 2.9 L Triglycerides Cholesterol LDL Cholesterol Direct VLDL Cholesterol HDL Cholesterol Lipase 165.2 Urine Color Urine Appearance Urine pH Ur Specific [place] Urine Protein Urine Glucose (UA) Urine Ketones Urine Blood Urine Nitrite Ur Leukocyte Esterase Urine WBC (Auto) Urine RBC (Auto) 01/20/19 01/20/19 01/21/19 15:50 21:38 05:10 WBC 7.1 RBC 2.38 L Hgb 8.0 L Hct 23.1 L MCV 97 MCH 33.7 H MCHC 34.7 RDW 16.7 H Plt Count 125 L Seg Neutrophils % 61.3 Sodium Potassium Chloride Carbon Dioxide Anion Gap BUN Creatinine Est GFR ( Amer) Glucose Calcium Phosphorus 2.1 L Magnesium 1.7 Total Bilirubin AST Alkaline Phosphatase Total Protein Albumin Triglycerides Cholesterol LDL Cholesterol Direct VLDL Cholesterol HDL Cholesterol Lipase Urine Color JOSE RAUL Urine Appearance SLIGHTLY-CLOUDY Urine pH 5.0 Ur Specific [place] 1.019 Urine Protein 100 H Urine Glucose (UA) NEGATIVE Urine Ketones NEGATIVE Urine Blood SMALL H Urine Nitrite NEGATIVE Ur Leukocyte Esterase NEGATIVE Urine WBC (Auto) 5 Urine RBC (Auto) 1 01/21/19 05:10 WBC RBC Hgb Hct MCV MCH MCHC RDW Plt Count Seg Neutrophils % Sodium 131.4 L Potassium 4.1 Chloride 105 Carbon Dioxide 21 L Anion Gap 5 BUN 4 L Creatinine 0.44 L Est GFR ( Amer) > 60 Glucose 93 Calcium 7.2 L Phosphorus Magnesium Total Bilirubin AST Alkaline Phosphatase Total Protein Albumin Triglycerides 71 Cholesterol 90.11 LDL Cholesterol Direct 67 VLDL Cholesterol 14.0 HDL Cholesterol 12 L Lipase Urine Color Urine Appearance Urine pH Ur Specific [place] Urine Protein Urine Glucose (UA) Urine Ketones Urine Blood Urine Nitrite Ur Leukocyte Esterase Urine WBC (Auto) Urine RBC (Auto) Assessment and Plan - Diagnosis (1) Acute alcoholic hepatitis Is this a current diagnosis for this admission?: Yes Plan: Alcohol avoidance, consider Solu-Medrol, Acetadote if LFTs worsen, otherwise supportive care. (2) Anemia of chronic disease Is this a current diagnosis for this admission?: Yes Plan: Follow-up anemia labs (3) Alcohol abuse Is this a current diagnosis for this admission?: Yes Plan: Thiamine and folate initiated (4) Alcohol withdrawal Qualifiers: Complication of substance-induced condition: with unspecified complication Qualified Code(s): F10.239 - Alcohol dependence with withdrawal, unspecified Is this a current diagnosis for this admission?: Yes Plan: Scheduled Valium and Ativan as needed. Patient may require involuntary commitment papers if attempts to leave AMA a second time. (5) Tachycardia Is this a current diagnosis for this admission?: Yes Plan: Secondary to alcohol withdrawal. Valium and Ativan ordered. - Time Time Spent with patient: 35 or more minutes - Inpatient Certification Medical Necessity: Need Close Monitoring Due to Risk of Patient Decompensation
[2019-01-21 06:55] LABS: ALBUMIN 2.1 g/dL (3.5-5.0); ALKALINE PHOSPHATASE 135 U/L (38-126); ASPARTATE AMINO TRANSFERASE 97 U/L (17-59); BILIRUBIN,DIRECT 1.7 mg/dL (0.0-0.4); BILIRUBIN,TOTAL 3.8 mg/dL (0.2-1.3); TOTAL PROTEIN 5.8 g/dL (6.3-8.2)
[2019-01-21] MEDS: PHOSPHORUS #1 250 MG TABLET PO SCH ×3 (09:00→15:14)
[2019-01-21] MEDS: THIAMINE HCL 100 MG TABLET PO SCH (09:24)
[2019-01-21] MEDS: FOLIC ACID 1 MG TABLET PO SCH (09:24)
[2019-01-21] MEDS: DOCUSATE SODIUM 100 MG CAPSULE PO SCH ×2 (09:25→17:56)
[2019-01-21] MEDS: LORAZEPAM INJ 2 MG/1 ML VIAL IV PRN (09:26)
--- NOTE | 2019-01-21 12:38 | RADIOLOGY REPORT (SQ) ---
EXAM DESCRIPTION: U/S ABDOMEN COMPLETE W/DOPPLER COMPLETED DATE/TIME: 01/21/2019 12:24 pm REASON FOR STUDY: abd distention, abd pain COMPARISON: 03/21/2012, 01/16/2019 TECHNIQUE: Dynamic and static grayscale images acquired of the abdomen and recorded on PACS. Additio nal selected color Doppler and spectral images recorded. Note: Study does not meet criteria for complete doppler/duplex scan LIMITATIONS: Limited visualization of some structures FINDINGS: PANCREAS: Nonvisualized. LIVER: Heterogeneous echotexture with nodular contour no focal lesions. No intrahepatic ductal dilat ion. LIVER VASCULATURE: Normal directional flow of the main portal vein and hepatic veins. GALLBLADDER: Limited visualization. No wall thickening. No visualized stones. ULTRASOUND-DETECTED LÓPEZ'S SIGN: Negative. INTRAHEPATIC DUCTS AND COMMON DUCT: CBD and intrahepatic ducts normal caliber. No filling defects. INFERIOR VENA CAVA: Normal flow. AORTA: Nonvisualized. RIGHT KIDNEY: Asymmetrically small measuring 9.9 cm. Normal echogenicity. No solid or suspicious masses. No hydronephrosis. No calcifications. LEFT KIDNEY: Normal in size measuring 11.6 cm. Normal echogenicity. No solid or suspicious maximus s. No hydronephrosis. No calcifications. SPLEEN: Normal size measuring 12.3 cm. No solid masses. PERITONEAL AND PLEURAL SPACES: Moderate volume ascites. OTHER: No other significant finding. IMPRESSION: Limited visualization of some structures as above. 1. Coarse hepatic echotexture with nodular contour suggestive of intrinsic liver disease. Moderate volume ascites. 2. Otherwise unremarkable abdominal ultrasound as visualized. TECHNICAL DOCUMENTATION: JOB ID: [id number] [employer]- All Rights Reserved Reading location - IP/workstation name: [email or web address]
--- NOTE | 2019-01-21 15:51 | PDOC PROGRESS REPORT ---
Subjective Progress Note for:: 01/21/19 Subjective:: This is a 53 year old male with a past medical history of chronic alcohol abuse, hepatic cirrhosis and tobacco abuse who was recently treated and discharged for hepatic encephalopathy. Patient was sent back to the ER as he was complaining of recurrence of increasing abdominal pain and abdominal distention. He was admitted for possible alcoholic hepatitis. No acute event overnight. Upon encounter, patient appears comfortable. He is oriented x3. He says that his abdominal distention has been worse in the past 24 hours. He says his abdominal pain this morning is a little better. Denies chest pain or shortness of breath. Denies hematemesis or melena or he matochezia. Reason For Visit: ALCOHOL WITHDRAW,ACUTE ALCOHOLIC HEPATITIS Physical Exam Vital Signs: Temp Pulse Resp BP Pulse Ox 97.4 F 106 H 16 101/57 L 95 01/21/19 07:26 01/21/19 10:30 01/21/19 10:30 01/21/19 07:26 01/21/19 10:30 Intake & Output 01/20/19 01/21/19 01/22/19 06:59 06:59 06:59 Intake Total 500 Output Total 0 Balance 500 Weight 174 lb 9.698 oz General appearance: PRESENT: no acute distress, well-developed, well-nourished Head exam: PRESENT: atraumatic, normocephalic Eye exam: PRESENT: conjunctiva pink, EOMI, PERRLA. ABSENT: scleral icterus Ear exam: PRESENT: normal external ear exam Mouth exam: PRESENT: moist, tongue midline Neck exam: ABSENT: carotid bruit, JVD, lymphadenopathy, thyromegaly Respiratory exam: PRESENT: clear to auscultation michele. ABSENT: rales, rhonchi, wheezes Cardiovascular exam: PRESENT: RRR. ABSENT: diastolic murmur, rubs, systolic murmur Pulses: PRESENT: normal dorsalis pedis pul GI/Abdominal exam: PRESENT: ascites, distended. ABSENT: tenderness Rectal exam: PRESENT: deferred Extremities exam: PRESENT: full ROM, +1 edema. ABSENT: calf tenderness, clubbing Neurological exam: PRESENT: alert, awake, oriented to person, oriented to place, oriented to time, oriented to situation, CN II-XII grossly intact. ABSENT: motor sensory deficit Results Laboratory Results: 01/21/19 05:10 01/21/19 05:10 01/20/19 01/20/19 01/20/19 15:50 15:50 15:50 WBC 10.0 RBC 2.93 L Hgb 9.7 L Hct 28.3 L MCV 97 MCH 33.2 MCHC 34.4 RDW 17.1 H Plt Count 180 Seg Neutrophils % 71.0 Sodium 133.1 L Potassium 3.8 Chloride 101 Carbon Dioxide 23 Anion Gap 9 BUN 3 L Creatinine 0.52 Est GFR ( Amer) > 60 Glucose 114 H Calcium 8.2 L Phosphorus Magnesium Total Bilirubin 4.9 H AST 141 H Alkaline Phosphatase 199 H Total Protein 7.3 Albumin 2.9 L Triglycerides Cholesterol LDL Cholesterol Direct VLDL Cholesterol HDL Cholesterol Lipase 165.2 Urine Color Urine Appearance Urine pH Ur Specific [place] Urine Protein Urine Glucose (UA) Urine Ketones Urine Blood Urine Nitrite Ur Leukocyte Esterase Urine WBC (Auto) Urine RBC (Auto) 01/20/19 01/20/19 01/21/19 15:50 21:38 05:10 WBC 7.1 RBC 2.38 L Hgb 8.0 L Hct 23.1 L MCV 97 MCH 33.7 H MCHC 34.7 RDW 16.7 H Plt Count 125 L Seg Neutrophils % 61.3 Sodium Potassium Chloride Carbon Dioxide Anion Gap BUN Creatinine Est GFR ( Amer) Glucose Calcium Phosphorus 2.1 L Magnesium 1.7 Total Bilirubin AST Alkaline Phosphatase Total Protein Albumin Triglycerides Cholesterol LDL Cholesterol Direct VLDL Cholesterol HDL Cholesterol Lipase Urine Color JOSE RAUL Urine Appearance SLIGHTLY-CLOUDY Urine pH 5.0 Ur Specific [place] 1.019 Urine Protein 100 H Urine Glucose (UA) NEGATIVE Urine Ketones NEGATIVE Urine Blood SMALL H Urine Nitrite NEGATIVE Ur Leukocyte Esterase NEGATIVE Urine WBC (Auto) 5 Urine RBC (Auto) 1 01/21/19 01/21/19 05:10 05:10 WBC RBC Hgb Hct MCV MCH MCHC RDW Plt Count Seg Neutrophils % Sodium 131.4 L Potassium 4.1 Chloride 105 Carbon Dioxide 21 L Anion Gap 5 BUN 4 L Creatinine 0.44 L Est GFR ( Amer) > 60 Glucose 93 Calcium 7.2 L Phosphorus Magnesium Total Bilirubin 3.8 H AST 97 H Alkaline Phosphatase 135 H Total Protein 5.8 L Albumin 2.1 L Triglycerides 71 Cholesterol 90.11 LDL Cholesterol Direct 67 VLDL Cholesterol 14.0 HDL Cholesterol 12 L Lipase Urine Color Urine Appearance Urine pH Ur Specific [place] Urine Protein Urine Glucose (UA) Urine Ketones Urine Blood Urine Nitrite Ur Leukocyte Esterase Urine WBC (Auto) Urine RBC (Auto) Impressions: Abdomen Ultrasound 01/21/19 09:20 IMPRESSION: Limited visualization of some structures as above. 1. Coarse hepatic echotexture with nodular contour suggestive of intrinsic liver disease. Moderate volume ascites. 2. Otherwise unremarkable abdominal ultrasound as visualized. Assessment and Plan - Diagnosis (1) Decompensated liver disease Is this a current diagnosis for this admission?: Yes Plan: Patient's liver enzymes and INR are elevated. Abdominal ultrasound ordered and did show moderate ascites. He does have abdominal distention. Will order for paracentesis. Will also start lactulose. (2) Ascites Is this a current diagnosis for this admission?: Yes Plan: As per #1. (3) Acute alcoholic hepatitis Is this a current diagnosis for this admission?: Yes - Time Time Spent with patient: 25-34 minutes
[2019-01-21] MEDS ORDERED: PHYTONADIONE 5 MG TABLET PO ONE (16:30)
[2019-01-21] MEDS: LACTULOSE SYRUP 20 GM/30 ML UDCUP PO SCH (17:56)
[2019-01-21] MEDS: MAG HYDROX/AL HYDROX/SIMETH SUSP 30 ML UDCUP PO PRN (18:20)
[2019-01-22] MEDS: HEPARIN SOD (PORCINE) 5,000 UNIT/ML 1 ML VIAL SUBCUT SCH ×3 (05:57→23:30)
[2019-01-22] MEDS: LACTULOSE SYRUP 20 GM/30 ML UDCUP PO SCH ×3 (05:57→23:30)
[2019-01-22] MEDS: DIAZEPAM 5 MG TABLET PO SCH ×2 (05:58→13:49)
[2019-01-22 07:10] LABS: ABSOLUTE BASOPHILS # (AUTO) 0.1 10^3/uL (0.0-0.2); ABSOLUTE EOSINOPHILS # (AUTO) 0.1 10^3/uL (0.0-0.6); ABSOLUTE LYMPHOCYTES (AUTO) 1.8 10^3/uL (0.5-4.7); ABSOLUTE MONOCYTES (AUTO) 1.1 10^3/uL (0.1-1.4); ABSOLUTE NEUT (AUTO) 7.5 10^3/uL (1.7-8.2); BASOPHILS % (AUTO) 0.6 % (0-2); EOSINOPHILS % (AUTO) 0.5 % (0-6); HEMATOCRIT 26.2 % (37.9-51.0); HEMOGLOBIN 9.1 g/dL (13.5-17.0); MEAN CORPUSCULAR HEMOGLOBIN 33.7 pg (27.0-33.4); MEAN CORPUSCULAR HGB CONC 34.6 g/dL (32.0-36.0); MEAN CORPUSCULAR VOLUME 98 fl (80-97); MONOCYTES % (AUTO) 10.1 % (3-13); PLATELET COUNT 169 10^3/uL (150-450); RED BLOOD COUNT 2.69 10^6/uL (4.35-5.55); RED CELL DISTRIBUTION WIDTH 17.6 % (11.5-14.0); SEGMENTED NEUTROPHILS % (AUTO) 71.8 % (42-78); TOTAL CELLS COUNTED % (AUTO) 100 %; WHITE BLOOD COUNT 10.5 10^3/uL (4.0-10.5)
[2019-01-22 07:18] LABS: INTERNATIONAL RATION (INR) 1.83; PROTHROMBIN TIME 21.4 SEC (11.4-15.4)
[2019-01-22 07:44] LABS: ALBUMIN 2.4 g/dL (3.5-5.0); ALKALINE PHOSPHATASE 155 U/L (38-126); ANION GAP 8 (5-19); ASPARTATE AMINO TRANSFERASE 117 U/L (17-59); BILIRUBIN,DIRECT 1.9 mg/dL (0.0-0.4); BILIRUBIN,TOTAL 4.2 mg/dL (0.2-1.3); BLOOD UREA NITROGEN 5 mg/dL (7-20); CALCIUM 7.9 mg/dL (8.4-10.2); CARBON DIOXIDE 23 mmol/L (22-30); CHLORIDE 103 mmol/L (98-107); GLUCOSE 134 mg/dL (75-110); POTASSIUM 3.7 mmol/L (3.6-5.0); TOTAL PROTEIN 6.2 g/dL (6.3-8.2)
[2019-01-22] MEDS: MAG HYDROX/AL HYDROX/SIMETH SUSP 30 ML UDCUP PO PRN (08:50)
[2019-01-22] MEDS: PHOSPHORUS #1 250 MG TABLET PO SCH ×3 (08:50→15:08)
[2019-01-22] MEDS: FOLIC ACID 1 MG TABLET PO SCH (09:39)
[2019-01-22] MEDS: THIAMINE HCL 100 MG TABLET PO SCH (09:39)
[2019-01-22] MEDS: DOCUSATE SODIUM 100 MG CAPSULE PO SCH ×2 (09:39→17:16)
[2019-01-22] MEDS ORDERED: LACTULOSE SYRUP 20 GM/30 ML UDCUP PR ONE (11:00)
[2019-01-22] MEDS: CEFTRIAXONE 1 GM/D5W RTU 1 GM/50 ML RTUPB IV SCH (11:36)
[2019-01-22] MEDS ORDERED: DEXTROSE 50%-WATER 25 GM/50 ML DISP.SYRIN IV PRN ×2 (11:40)
[2019-01-22] MEDS ORDERED: DEXTROSE 40% GEL 15 GM TUBE PO PRN ×2 (11:40)
[2019-01-22] MEDS ORDERED: GLUCAGON,HUMAN RECOMB 1 MG INJ SUBCUT PRN (11:40)
--- NOTE | 2019-01-22 12:58 | RADIOLOGY REPORT (SQ) ---
EXAM DESCRIPTION: CT ABDOMEN NO ORAL OR IV COMPLETED DATE/TIME: 01/22/2019 12:43 pm REASON FOR STUDY: abdominal distension COMPARISON: Abdominal ultrasound 01/21/2019 CT abdomen pelvis 12/09/2013, 04/27/2010 TECHNIQUE: CT scan of the abdomen performed without intravenous contrast and without oral contrast. Images reviewed with lung, soft tissue, and bone windows. Reconstructed coronal and sagittal MPR im ages reviewed. All images stored on PACS. All CT scanners at this facility use dose modulation, iterative reconstruction, and/or weight based d osing when appropriate to reduce radiation dose to as low as reasonably achievable (ALARA). [facility]: Dose Right [facility]: CareDose [facility]: Dose Right [facility]: Teradose 4D [facility]: [employer] RADIATION DOSE: CT Rad equipment meets quality standard of care and radiation dose reduction techniq ues were employed. CTDIvol: 14.1 mGy. DLP: 598 mGy-cm.mGy. LIMITATIONS: None. FINDINGS: LOWER CHEST: Trace bilateral pleural effusions are present. Lung bases are clear. NONCONTRASTED LIVER, SPLEEN, ADRENALS: Liver is small with a nodular contour from cirrhosis. Spleen 14 cm in length. Adrenal glands unremarkable. PANCREAS: No masses. No peripancreatic inflammatory changes. GALLBLADDER: No identified stones by CT criteria. No inflammatory changes to suggest cholecystitis. RIGHT KIDNEY AND URETER: No suspicious masses. Assessment limited by lack of IV contrast. No signif icant calcifications. No hydronephrosis or hydroureter. LEFT KIDNEY AND URETER: No suspicious masses. Assessment limited by lack of IV contrast. No signifi cant calcifications. No hydronephrosis or hydroureter. AORTA AND RETROPERITONEUM: No aneurysm. No retroperitoneal masses or adenopathy. BOWEL AND PERITONEAL CAVITY: Moderate ascites in the abdomen. There distention of colon and small zeenat wel in the field of view, likely reflecting an ileus. Pelvis not imaged. APPENDIX: Not identified, possibly out of the field of view ABDOMINAL WALL: No abdominal wall hernias. BONES: No significant findings. OTHER: No other significant finding. IMPRESSION: Cirrhosis with ascites and portal hypertension Probable ileus with distention of colon and small bowel. Trace bilateral pleural effusions TECHNICAL DOCUMENTATION: JOB ID: [id number] Quality ID # [id number]: Final reports with documentation of one or more dose reduction techniques (e.g., Au tomated exposure control, adjustment of the mA and/or kV according to patient size, use of iterative reconstruction technique) 2010 [employer]- All Rights Reserved Reading location - IP/workstation name: [email or web address]
[2019-01-22] MEDS: PANTOPRAZOLE SODIUM 40 MG VIAL IV SCH ×2 (13:53→23:30)
[2019-01-22] MEDS: NORMAL SALINE 500 ML with OCTREOTIDE ACETATE 500 MCG IV PRN ×2 (14:10)
--- NOTE | 2019-01-22 14:48 | RADIOLOGY REPORT (SQ) ---
EXAM DESCRIPTION: U/S ABD PARACENTESIS COMPLETED DATE/TIME: 01/22/2019 1:39 pm REASON FOR STUDY: abd distention, ascites COMPARISON CT abdomen pelvis 01/22/2019 LIMITATIONS: None. PROCEDURE: After obtaining informed consent, the patient was brought to the ultrasound suite. The p rocedure was performed with the patient on a gurney. Ultrasound was used to identify a prominent poc ket of ascites in the right lower quadrant. An appropriate access site was selected. The patient wa s prepped and draped in usual sterile fashion. The access site was anesthetized with 6 mL 1% lidoca ine. A [id number]-G-[id number] needle was advanced into the fluid. After aspiration of fluid the needle, th e catheter was advanced off the needle into the fluid. A total of 3,700 mL of clear straw-colored fl uid was removed. The patient tolerated the procedure well left the department in satisfactory conditi on. Specimens were sent to the lab for testing IMPRESSION: Successful ultrasound-guided paracentesis COMMENT: Patient medication list reviewed: Yes- Quality ID# [id number]:Eligible professional attests to doc umenting in the medical record they obtained, updated, or reviewed the patient's current medications. TECHNICAL DOCUMENTATION: JOB ID: [id number] [employer]- All Rights Reserved Reading location - IP/workstation name: [email or web address]
[2019-01-22 15:20] LABS: FLUID APPEARANCE CLEAR; FLUID COLOR YELLOW; FLUID SOURCE ASCITES; FLUID TYPE PERITONEAL; FLUID VISCOSITY LIQUID
[2019-01-22] MEDS: ALBUMIN HUMAN 12.5 GM/50 ML RTUINJ IV SCH ×2 (16:35→17:20)
--- NOTE | 2019-01-22 17:22 | PDOC PROGRESS REPORT ---
Subjective Progress Note for:: 01/22/19 Subjective:: This is a 53 year old male with a past medical history of chronic alcohol abuse, hepatic cirrhosis and tobacco abuse who was recently treated and discharged for hepatic encephalopathy. Patient was sent back to the ER as he was complaining of recurrence of increasing abdominal pain and abdominal distention. He was admitted for possible alcoholic hepatitis. 01/21: Upon encounter, patient appears comfortable. He is oriented x3. He says that his abdominal distention has been worse in the past 24 hours. He says his abdominal pain this morning is a little better. Denies chest pain or shortness of breath. Denies hematemesis or melena or hematochezia. 01/22: Patient complained of more abdominal discomfort this morning. He does appear to be more distended. He had paracentesis and had 3.6 L drained and reported some relief. He had an episode of dark brown emesis. He was also given a rectal lactulose and passed out a small bright red bloody stool. Reason For Visit: ALCOHOL WITHDRAW,ACUTE ALCOHOLIC HEPATITIS Physical Exam Vital Signs: Temp Pulse Resp BP Pulse Ox 97.8 F 123 H 16 127/80 H 96 01/22/19 11:38 01/22/19 14:00 01/22/19 11:38 01/22/19 11:38 01/22/19 11:38 Intake & Output 01/21/19 01/22/19 01/23/19 06:59 06:59 06:59 Intake Total 500 650 50 Output Total 0 400 Balance 500 250 50 Weight 174 lb 9.698 oz 175 lb 11.335 oz General appearance: PRESENT: no acute distress, well-developed, well-nourished Head exam: PRESENT: atraumatic, normocephalic Eye exam: PRESENT: conjunctiva pink, EOMI, PERRLA. ABSENT: scleral icterus Ear exam: PRESENT: normal external ear exam Mouth exam: PRESENT: moist, tongue midline Neck exam: ABSENT: carotid bruit, JVD, lymphadenopathy, thyromegaly Respiratory exam: PRESENT: clear to auscultation michele. ABSENT: rales, rhonchi, wheezes Cardiovascular exam: PRESENT: RRR. ABSENT: diastolic murmur, rubs, systolic murmur Pulses: PRESENT: normal dorsalis pedis pul GI/Abdominal exam: PRESENT: ascites, distended Rectal exam: PRESENT: deferred Neurological exam: PRESENT: alert, awake, oriented to person, oriented to place, CN II-XII grossly intact. ABSENT: motor sensory deficit Results Laboratory Results: 01/22/19 06:39 01/22/19 06:39 01/22/19 01/22/19 01/22/19 06:39 06:39 11:22 WBC 10.5 RBC 2.69 L Hgb 9.1 L Hct 26.2 L MCV 98 H MCH 33.7 H MCHC 34.6 RDW 17.6 H Plt Count 169 Seg Neutrophils % 71.8 Sodium 134.2 L Potassium 3.7 Chloride 103 Carbon Dioxide 23 Anion Gap 8 BUN 5 L Creatinine 0.53 Est GFR ( Amer) > 60 Glucose 134 H Lactic Acid 2.1 Calcium 7.9 L Total Bilirubin 4.2 H AST 117 H Alkaline Phosphatase 155 H Total Protein 6.2 L Albumin 2.4 L Fluid Type Fluid Source Fluid Color Fluid Appearance Fluid Viscosity Fluid WBC Fluid RBC 01/22/19 12:05 WBC RBC Hgb Hct MCV MCH MCHC RDW Plt Count Seg Neutrophils % Sodium Potassium Chloride Carbon Dioxide Anion Gap BUN Creatinine Est GFR ( Amer) Glucose Lactic Acid Calcium Total Bilirubin AST Alkaline Phosphatase Total Protein Albumin Fluid Type PERITONEAL Fluid Source ASCITES Fluid Color YELLOW Fluid Appearance CLEAR Fluid Viscosity LIQUID Fluid WBC 134 Fluid RBC 115 Impressions: Abdomen Ultrasound 01/21/19 09:20 IMPRESSION: Limited visualization of some structures as above. 1. Coarse hepatic echotexture with nodular contour suggestive of intrinsic liver disease. Moderate volume ascites. 2. Otherwise unremarkable abdominal ultrasound as visualized. Abdomen CT 01/22/19 00:00 IMPRESSION: Cirrhosis with ascites and portal hypertension Probable ileus with distention of colon and small bowel. Trace bilateral pleural effusions Paracentesis Ultrasound 01/22/19 00:00 IMPRESSION: Successful ultrasound-guided paracentesis Assessment and Plan - Diagnosis (1) Decompensated liver disease Is this a current diagnosis for this admission?: Yes Plan: Patient just had paracentesis and 3.6 L removed. Will order for albumin infusion. Continue lactulose. (2) Ascites Is this a current diagnosis for this admission?: Yes Plan: As per #1. (3) Acute alcoholic hepatitis Is this a current diagnosis for this admission?: Yes Plan: Continue Solu-Medrol. - Time Time Spent with patient: 25-34 minutes
--- NOTE | 2019-01-22 18:31 | PDOC TRANSFER SUMMARY ---
General Admission Date/PCP: 01/20/19 23:00 [facility] Admission Date: 01/22/19 Resuscitation Status: Full Code - Transfer Diagnosis (1) GI bleed Is this a current diagnosis for this admission?: Yes (2) Decompensated liver disease Is this a current diagnosis for this admission?: Yes (3) Ascites Is this a current diagnosis for this admission?: Yes (4) Acute alcoholic hepatitis Is this a current diagnosis for this admission?: Yes - Transfer Medications Home Medications: No Home Medications 01/21/19 Transfer Medications: Current Medications Al Hydrox/Mg Hydrox/Simethicone (Maalox Plus Susp 30 Udcup) 30 ml PO Q6HP PRN PRN Reason: HEARTBURN Stop: 02/19/19 22:51 Last Admin: 01/22/19 08:50 Dose: 30 ml Documented by: Albuterol/Ipratropium (Duoneb 3 Ml Ampul) 3 ml NEB [id number] PRN PRN Reason: SHORTNESS OF BREATH Stop: 02/19/19 22:51 Dextrose (Dextrose Inj 50% Syringe (25 Gm/50 Ml)) 12.5 gm IV PRN PRN; Protocol PRN Reason: FOR BG 50-69 IN ALERT PATIENT Stop: 02/21/19 11:39 Dextrose (Dextrose Inj 50% Syringe (25 Gm/50 Ml)) 25 gm IV PRN PRN; Protocol PRN Reason: See Label Comments Stop: 02/21/19 11:39 Docusate Sodium (Colace 100 Mg Capsule) 100 mg PO BID LYNNE Stop: 02/20/19 09:59 Last Admin: 01/22/19 17:16 Dose: 100 mg Documented by: Folic Acid (Folvite 1 Mg Tablet) 1 mg PO DAILY LYNNE Stop: 02/20/19 09:59 Last Admin: 01/22/19 09:39 Dose: 1 mg Documented by: Glucagon (Glucagen Inj 1 Mg Vial) 1 mg SUBCUT PRN PRN; Protocol PRN Reason: Evaluate for BG < 70 Stop: 02/21/19 11:39 Glucose (Glutose 40% Gel 15 Gm Tube) 15 gm PO PRN PRN; Protocol PRN Reason: For BG 50-69 in Alert Patient Stop: 02/21/19 11:39 Glucose (Glutose 40% Gel 15 Gm Tube) 30 gm PO PRN PRN; Protocol PRN Reason: FOR BG < 50 IN ALERT PATIENT Stop: 02/21/19 11:39 Heparin Sodium (Porcine) (Heparin Inj 5,000 Units/Ml 1 Ml Vial) 5,000 unit SUBCUT Q8 LYNNE Stop: 02/20/19 05:59 Last Admin: 01/22/19 13:50 Dose: Not Given Documented by: Ceftriaxone Sodium/Dextrose (Rocephin Rtu 1 Gm/D5w 50 Ml Premix) 1 gm in 50 mls @ 100 mls/hr IV DAILY LYNNE Stop: 01/29/19 09:59 Last Infusion: 01/22/19 12:30 Dose: Infused Documented by: Octreotide Acetate 500 mcg/ (Sodium Chloride) 500 mls @ 50 mls/hr IV CONTINUOUS PRN PRN Reason: THIS MED IS NOT "PRN" Stop: 02/21/19 13:07 Last Admin: 01/22/19 14:10 Dose: 50 mls/hr, 50 mls/hr Documented by: Albumin Human (Albuminar-25 Rtu Inj 12.5 Gm/50 Ml Premix) 12.5 gm in 50 mls @ 50 mls/hr IV Q1H LYNNE Stop: 01/22/19 18:59 Last Infusion: 01/22/19 18:14 Dose: Infused Documented by: Lactulose (Cephulac Syrup 20 Gm/30 Ml Udcup) 20 gm PO Q8 LYNNE Stop: 02/21/19 13:59 Last Admin: 01/22/19 13:54 Dose: 20 gm Documented by: Lorazepam (Ativan Inj 2 Mg/1 Ml Vial) 4 mg IV Q4HP PRN PRN Reason: ANXIETY/AGITATION Stop: 01/27/19 22:51 Last Admin: 01/21/19 09:26 Dose: 4 mg Documented by: Pantoprazole Sodium (Protonix Iv Inj 40 Mg Vial) 40 mg IV Q12 LYNNE Stop: 01/25/19 13:59 Last Admin: 01/22/19 13:53 Dose: 40 mg Documented by: Thiamine HCl (Thiamine 100 Mg Tablet) 100 mg PO DAILY LYNNE Stop: 02/20/19 09:59 Last Admin: 01/22/19 09:39 Dose: 100 mg Documented by: - Allergies Allergies/Adverse Reactions: No Known Allergies Allergy (Verified 01/20/19 15:16) Hospital Course Hospital Course: This is a 53 year old male with a past medical history of chronic alcohol abuse, hepatic cirrhosis and tobacco abuse who was recently treated and discharged for hepatic encephalopathy. Patient was sent back to the ER as he was complaining of recurrence of increasing abdominal pain and abdominal distention. He was admitted for possible alcoholic hepatitis and decompensated liver disease. Patient underwent paracentesis and had 3.6 L of ascites drained. He is currently getting IV albumin. Later today, patient developed an episode of coffee-ground emesis and one episode of bright red bloody stools. He was started on IV Protonix 40 mg twice daily and was also started on somatostatin drip. Blood pressures remained stable although his heart rate has been going up in the 110s-120s. Due to unavailability of GI or endoscopic services, patient will be transferred to tertiary hospital. He will also be given an FFP. Discussed with Jessica Torres hospitalist who has accepted the patient transfer. He will be on a waiting list as they don't have available beds at the moment. Physical Exam Vital Signs: Temp Pulse Resp BP Pulse Ox 97.7 F 122 H 20 113/77 100 01/22/19 15:30 01/22/19 15:30 01/22/19 15:30 01/22/19 15:30 01/22/19 15:30 Intake & Output 01/21/19 01/22/19 01/23/19 06:59 06:59 06:59 Intake Total 500 650 283 Output Total 0 400 400 Balance 500 250 -117 Weight 174 lb 9.698 oz 175 lb 11.335 oz General appearance: PRESENT: no acute distress, well-developed, well-nourished Head exam: PRESENT: atraumatic, normocephalic Eye exam: PRESENT: conjunctiva pink, EOMI, PERRLA. ABSENT: scleral icterus Ear exam: PRESENT: normal external ear exam Mouth exam: PRESENT: moist, tongue midline Neck exam: ABSENT: carotid bruit, JVD, lymphadenopathy, thyromegaly Respiratory exam: PRESENT: clear to auscultation michele. ABSENT: rales, rhonchi, wheezes Cardiovascular exam: PRESENT: RRR. ABSENT: diastolic murmur, rubs, systolic murmur Pulses: PRESENT: normal dorsalis pedis pul GI/Abdominal exam: PRESENT: normal bowel sounds, soft. ABSENT: distended, guarding, mass, organolmegaly, rebound, tenderness Rectal exam: PRESENT: deferred Neurological exam: PRESENT: alert, awake, oriented to person, oriented to place, CN II-XII grossly intact. ABSENT: motor sensory deficit Results Laboratory Results: 01/22/19 06:39 01/22/19 06:39 01/22/19 01/22/19 01/22/19 06:39 06:39 11:22 WBC 10.5 RBC 2.69 L Hgb 9.1 L Hct 26.2 L MCV 98 H MCH 33.7 H MCHC 34.6 RDW 17.6 H Plt Count 169 Seg Neutrophils % 71.8 Sodium 134.2 L Potassium 3.7 Chloride 103 Carbon Dioxide 23 Anion Gap 8 BUN 5 L Creatinine 0.53 Est GFR ( Amer) > 60 Glucose 134 H Lactic Acid 2.1 Calcium 7.9 L Total Bilirubin 4.2 H AST 117 H Alkaline Phosphatase 155 H Total Protein 6.2 L Albumin 2.4 L Fluid Type Fluid Source Fluid Color Fluid Appearance Fluid Viscosity Fluid WBC Fluid RBC 01/22/19 12:05 WBC RBC Hgb Hct MCV MCH MCHC RDW Plt Count Seg Neutrophils % Sodium Potassium Chloride Carbon Dioxide Anion Gap BUN Creatinine Est GFR ( Amer) Glucose Lactic Acid Calcium Total Bilirubin AST Alkaline Phosphatase Total Protein Albumin Fluid Type PERITONEAL Fluid Source ASCITES Fluid Color YELLOW Fluid Appearance CLEAR Fluid Viscosity LIQUID Fluid WBC 134 Fluid RBC 115 Impressions: Abdomen Ultrasound 01/21/19 09:20 IMPRESSION: Limited visualization of some structures as above. 1. Coarse hepatic echotexture with nodular contour suggestive of intrinsic liver disease. Moderate volume ascites. 2. Otherwise unremarkable abdominal ultrasound as visualized. Abdomen CT 01/22/19 00:00 IMPRESSION: Cirrhosis with ascites and portal hypertension Probable ileus with distention of colon and small bowel. Trace bilateral pleural effusions Paracentesis Ultrasound 01/22/19 00:00 IMPRESSION: Successful ultrasound-guided paracentesis
[2019-01-22] MEDS ORDERED: NORMAL SALINE 250 ML IV PRN (18:32)
--- NOTE | 2019-01-22 18:45 | PDOC CONSULTATION ---
Consultation Consult Date: 01/22/19 Provider Consulted: JOMAR SHEFFIELD Consult reason:: GI Bleed History of Present Illness Admission Date/PCP: 01/20/19 23:[facility] History of Present Illness: LEXY AC JR is a 53 year old male with history of alcolic liver cirrhosis with encephalopathy, posyt drainage of peritoneal fluid by IR today, noted dark fluid emesis and small amount of bright red blood per rectum. 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 He apparently continues to drink. Had a CT scan done today which shows liver cirrhosis with portal hypertension. He was scoped at [facility] 3 months prior to being seen on 10/02/16 and noted gastric ulcer. Past Medical History Cardiac Medical History: Reports: Hypertension Denies: Coronary Artery Disease, Myocardial Infarction Pulmonary Medical History: Reports: Pneumonia Denies: Asthma, Chronic Obstructive Pulmonary Disease (COPD) Neurological Medical History: Denies: Seizures Endocrine Medical History: Denies: Diabetes Mellitus Type 1, Diabetes Mellitus Type 2, Hyperthyroidism, Hypothyroidism GI Medical History: Reports: Cirrhosis - Alcoholic cirrhosis, Hepatitis - Alcoholic hepatitis Denies: Crohn's Disease, Gastroesophageal Reflux Disease, Ulcerative Colitis Musculoskeltal Medical History: Reports: Arthritis Denies: Gout Skin Medical History: Denies: Eczema, Psoriasis Psychiatric Medical History: Reports: Alcohol Dependency, Depression, Tobacco Dependency Hematology: Denies: Anemia, Bleeding Tendencies Past Surgical History Past Surgical History: Reports: Orthopedic Surgery - Wrist fracture, ankle fracture, Other - Childhood strabismus correction, Social History Lives with: Alone Smoking Status: Current Every Day Smoker Frequency of Alcohol Use: Heavy Hx Recreational Drug Use: No Drugs: None Hx Prescription Drug Abuse: No - Advance Directive Resuscitation Status: Full Code Family History Family History: CAD, COPD, DM, Hypertension, Malignancy, Other - Alcoholism, glaucoma Parental Family History Reviewed: Yes Children Family History Reviewed: No Sibling(s) Family History Reviewed.: No Medication/Allergy Home Medications: No Home Medications 01/21/19 Allergies/Adverse Reactions: No Known Allergies Allergy (Verified 01/20/19 15:16) Review of Systems ROS unobtainable: Due to mental status - Has off and on episodes of confusion and therefore unable to give a good history Physical Exam Vital Signs: Temp Pulse Resp BP Pulse Ox 97.7 F 122 H 20 113/77 100 01/22/19 15:30 01/22/19 15:30 01/22/19 15:30 01/22/19 15:30 01/22/19 15:30 Intake & Output 01/21/19 01/22/19 01/23/19 06:59 06:59 06:59 Intake Total 500 650 283 Output Total 0 400 400 Balance 500 250 -117 Weight 79.2 kg 79.7 kg General appearance: PRESENT: mild distress Head exam: PRESENT: atraumatic Neck exam: PRESENT: full ROM Respiratory exam: PRESENT: clear to auscultation michele Cardiovascular exam: PRESENT: RRR Pulses: PRESENT: normal radial pulses Vascular exam: PRESENT: normal capillary refill GI/Abdominal exam: PRESENT: ascites - non tender Rectal exam: PRESENT: deferred Neurological exam: PRESENT: alert, oriented to person, oriented to place - not well oriented to time and situation Psychiatric exam: PRESENT: depressed Skin exam: PRESENT: normal color, warm Results Laboratory Results: 01/22/19 06:39 01/22/19 06:39 01/22/19 01/22/19 01/22/19 06:39 06:39 11:22 WBC 10.5 RBC 2.69 L Hgb 9.1 L Hct 26.2 L MCV 98 H MCH 33.7 H MCHC 34.6 RDW 17.6 H Plt Count 169 Seg Neutrophils % 71.8 Sodium 134.2 L Potassium 3.7 Chloride 103 Carbon Dioxide 23 Anion Gap 8 BUN 5 L Creatinine 0.53 Est GFR ( Amer) > 60 Glucose 134 H Lactic Acid 2.1 Calcium 7.9 L Total Bilirubin 4.2 H AST 117 H Alkaline Phosphatase 155 H Total Protein 6.2 L Albumin 2.4 L Fluid Type Fluid Source Fluid Color Fluid Appearance Fluid Viscosity Fluid WBC Fluid RBC 01/22/19 12:05 WBC RBC Hgb Hct MCV MCH MCHC RDW Plt Count Seg Neutrophils % Sodium Potassium Chloride Carbon Dioxide Anion Gap BUN Creatinine Est GFR ( Amer) Glucose Lactic Acid Calcium Total Bilirubin AST Alkaline Phosphatase Total Protein Albumin Fluid Type PERITONEAL Fluid Source ASCITES Fluid Color YELLOW Fluid Appearance CLEAR Fluid Viscosity LIQUID Fluid WBC 134 Fluid RBC 115 Impressions: Abdomen Ultrasound 01/21/19 09:20 IMPRESSION: Limited visualization of some structures as above. 1. Coarse hepatic echotexture with nodular contour suggestive of intrinsic liver disease. Moderate volume ascites. 2. Otherwise unremarkable abdominal ultrasound as visualized. Abdomen CT 01/22/19 00:00 IMPRESSION: Cirrhosis with ascites and portal hypertension Probable ileus with distention of colon and small bowel. Trace bilateral pleural effusions Paracentesis Ultrasound 01/22/19 00:00 IMPRESSION: Successful ultrasound-guided paracentesis Assessment & Plan - Diagnosis (1) GI bleed Is this a current diagnosis for this admission?: Yes (2) Acute alcoholic hepatitis Is this a current diagnosis for this admission?: Yes (3) Alcohol abuse Is this a current diagnosis for this admission?: Yes (4) Anemia of chronic disease Is this a current diagnosis for this admission?: Yes (5) Hepatic encephalopathy Is this a current diagnosis for this admission?: Yes - Time Time Spent: 30 to 50 Minutes - Inpatient Certification Medical Necessity: Need Close Monitoring Due to Risk of Patient Decompensation, Need For IV Fluids, Need for Surgery - Plan Summary Plan Summary: Will need urgent EGD/colonoscopy GI consult Unfortunately we don't have g i available for consult. At the same time we have a small blood bank with not a lot of blood available to transfuse in case patient bleeds a lot. His coagulation is abnormal and will likely also need a lot of FFP and possibly platelets. I would recommend that he be transfered to a tertiary care hospital.
[2019-01-22 19:47] LABS: HEMATOCRIT 25.3 % (37.9-51.0); HEMOGLOBIN 8.6 g/dL (13.5-17.0); MEAN CORPUSCULAR HEMOGLOBIN 33.8 pg (27.0-33.4); MEAN CORPUSCULAR VOLUME 99 fl (80-97); PLATELET COUNT 181 10^3/uL (150-450); RED BLOOD COUNT 2.55 10^6/uL (4.35-5.55); RED CELL DISTRIBUTION WIDTH 19.5 % (11.5-14.0); WHITE BLOOD COUNT 8.5 10^3/uL (4.0-10.5)
[2019-01-23] MEDS ORDERED: OCTREOTIDE ACETATE INJ/PF 100 MCG/1 ML SDV ONE (02:41)
[2019-01-23] MEDS: LACTULOSE SYRUP 20 GM/30 ML UDCUP PO SCH ×3 (05:02→22:02)
[2019-01-23] MEDS: HEPARIN SOD (PORCINE) 5,000 UNIT/ML 1 ML VIAL SUBCUT SCH ×3 (05:02→22:02)
[2019-01-23 05:31] LABS: ABSOLUTE BASOPHILS # (AUTO) 0.1 10^3/uL (0.0-0.2); ABSOLUTE EOSINOPHILS # (AUTO) 0.1 10^3/uL (0.0-0.6); ABSOLUTE MONOCYTES (AUTO) 0.7 10^3/uL (0.1-1.4); ABSOLUTE NEUT (AUTO) 3.3 10^3/uL (1.7-8.2); EOSINOPHILS % (AUTO) 1.9 % (0-6); HEMATOCRIT 22.5 % (37.9-51.0); LYMPHOCYTES % (AUTO) 32.5 % (13-45); MEAN CORPUSCULAR HGB CONC 34.7 g/dL (32.0-36.0); MEAN CORPUSCULAR VOLUME 98 fl (80-97); MONOCYTES % (AUTO) 10.7 % (3-13); PLATELET COUNT 156 10^3/uL (150-450); RED BLOOD COUNT 2.29 10^6/uL (4.35-5.55); RED CELL DISTRIBUTION WIDTH 19.7 % (11.5-14.0); SEGMENTED NEUTROPHILS % (AUTO) 53.9 % (42-78); TOTAL CELLS COUNTED % (AUTO) 100 %; WHITE BLOOD COUNT 6.2 10^3/uL (4.0-10.5)
[2019-01-23 05:42] LABS: ALBUMIN 2.3 g/dL (3.5-5.0); ALKALINE PHOSPHATASE 107 U/L (38-126); ANION GAP 8 (5-19); ASPARTATE AMINO TRANSFERASE 82 U/L (17-59); BILIRUBIN,DIRECT 1.9 mg/dL (0.0-0.4); BILIRUBIN,TOTAL 5.2 mg/dL (0.2-1.3); BLOOD UREA NITROGEN 3 mg/dL (7-20); CALCIUM 7.8 mg/dL (8.4-10.2); CARBON DIOXIDE 23 mmol/L (22-30); CHLORIDE 103 mmol/L (98-107); GLUCOSE 140 mg/dL (75-110); POTASSIUM 3.3 mmol/L (3.6-5.0); TOTAL PROTEIN 5.7 g/dL (6.3-8.2)
[2019-01-23 05:45] LABS: HEMOGLOBIN 7.8 g/dL (13.5-17.0)
[2019-01-23 06:22] LABS: ANISOCYTOSIS 2+; HYPOCHROMASIA 2+; PLATELET COMMENT ADEQUATE; TARGET CELLS 1+
[2019-01-23 06:37] LABS: HEPATITS B SURFACE ANTIGEN Negative (Negative)
[2019-01-23 07:12] LABS: HEPATITIS C VIRUS ANTIBODY <0.1 s/co ratio (0.0-0.9)
[2019-01-23] MEDS ORDERED: NORMAL SALINE 250 ML IV PRN ×2 (07:57)
[2019-01-23] MEDS ORDERED: SPIRONOLACTONE 25 MG TABLET PO SCH (08:00)
[2019-01-23] MEDS ORDERED: POTASSI CL 20 MEQ/50 ML RIDER 20 MEQ/50 ML RTUPB IV SCH (08:45)
[2019-01-23] MEDS ORDERED: LACTULOSE SYRUP 20 GM/30 ML UDCUP PR ONE (09:30)
[2019-01-23] MEDS: CEFTRIAXONE 1 GM/D5W RTU 1 GM/50 ML RTUPB IV SCH (10:26)
[2019-01-23] MEDS: POTASSIUM CHLORIDE 20 MEQ/50 ML RTU IV SCH ×2 (10:37→12:32)
[2019-01-23] MEDS: POTASSIUM CHLORIDE 10 MEQ CAPSULE.ER PO SCH (10:39)
[2019-01-23] MEDS: PANTOPRAZOLE SODIUM 40 MG VIAL IV SCH ×2 (10:40→22:02)
[2019-01-23] MEDS: FOLIC ACID 1 MG TABLET PO SCH (10:40)
[2019-01-23] MEDS: SPIRONOLACTONE 25 MG TABLET PO SCH ×2 (10:40→22:02)
[2019-01-23] MEDS: FUROSEMIDE 20 MG TABLET PO SCH ×2 (10:40→17:19)
[2019-01-23] MEDS: DOCUSATE SODIUM 100 MG CAPSULE PO SCH ×2 (10:40→17:19)
[2019-01-23] MEDS: THIAMINE HCL 100 MG TABLET PO SCH (10:40)
[2019-01-23 11:31] LABS: PATH REVIEW PATHOLOGIST REVIEWED
--- NOTE | 2019-01-23 11:31 | RADIOLOGY REPORT (SQ) ---
EXAM DESCRIPTION: KUB/ABDOMEN (SINGLE VIEW) COMPLETED DATE/TIME: 01/23/2019 9:12 am REASON FOR STUDY: eval for obstructive pattern COMPARISON: CT abdomen pelvis 01/22/2019 Paracentesis 01/22/2019 NUMBER OF VIEWS: One view. TECHNIQUE: Supine radiographic image of the abdomen acquired. LIMITATIONS: None. FINDINGS: BOWEL GAS PATTERN: Gas and stool in the colon. Rectal air bubble present. Diffuse gaseou s distension of stomach and small bowel. Pattern likely reflects an ileus. CALCIFICATIONS: No suspicious calcifications. SOFT TISSUES: No gross mass or suggestion of organomegaly. HARDWARE: None in the abdomen. BONES: No acute fracture. No worrisome bone lesions. OTHER: No other significant finding. IMPRESSION: Probable ileus TECHNICAL DOCUMENTATION: JOB ID: [id number] [employer]- All Rights Reserved Reading location - IP/workstation name: [email or web address]
--- NOTE | 2019-01-23 11:34 | RADIOLOGY REPORT (SQ) ---
EXAM DESCRIPTION: PICC INSERTION; U/S GUIDE FOR VASCULAR ACCESS; FLUORO/CV PLACEMENT COMPLETED DATE/TIME: 01/23/2019 10:22 am; 01/23/2019 10:23 am REASON FOR STUDY: GI bleed, poor IV access; POOR IV ACCESS COMPARISON: Abdominal films 01/23/2019 FLUOROSCOPY TIME: 32 seconds 1 fluoroscopic and 1 ultrasound images saved to PACS. TECHNIQUE: Fluoroscopic and ultrasound guided PICC placement. LIMITATIONS: None. PROCEDURE: After written consent and assessment were obtained, the patient was brought into the fluo roscopy room and placed supine on the table. Ultrasound evaluation of potential access sites were per formed. After successfully identifying a patent left basilic vein, the left arm was prepped and drape d in a sterile fashion along with the ultrasound probe. The entry site was anesthetized with 1% lidoc tanja. A 21 gauge 7 cm needle was advanced through the skin and into the basilic vein under live ultra sound guidance. An ultrasound image was saved to PACS confirming access site. A .018 guide wire was then inserted through the needle and into the venous system. The needle was then removed and an 11 b lade scalpel was used to make a 1cm skin incision. A 5 fr peel-away sheath was advanced over the wir e and into the venous system. A measurement was then made using the existing wire and live fluoroscop ic guidance. The wire was then removed and trimmed. The PICC was advanced through the peel-away sheat h and into the venous system. The peel-away sheath was removed and the catheter was adhered to the pa tients arm with a stat lock. The catheter was then aspirated and flushed and a sterile bandage was pl aced over the access site. A fluoroscopic spot image was saved to PACS confirming the catheter tip w ithin the superior vena cava. IMPRESSION: SUCCESSFUL PLACEMENT OF A 5 FR DUAL LUMEN 26 CM PICC IN THE LEFT BASILIC VEIN. COMMENT: Patient medication list reviewed: Yes- Quality ID# 130:Eligible professional attests to doc umenting in the medical record they obtained, updated, or reviewed the patient's current medications. . Quality ID 145: Final reports for procedures using fluoroscopy that document radiation exposure rufina farrah, or exposure time and number of fluorographic images (if radiation exposure indices are not avail able) Quality ID #76: The patient was prepped and draped using maximum sterile barrier technique including cap, mask, sterile gown, sterile gloves, a large sterile sheet, hand hygiene, and 2% Chlorhexidine fo r cutaneous antisepsis. When ultrasound is used, sterile ultrasound techniques are followed requiring sterile gel and sterile probes. TECHNICAL DOCUMENTATION: JOB ID: [id number] [employer]- All Rights Reserved rev-09/13 Reading location - IP/workstation name: [email or web address]
[2019-01-23] MEDS: NORMAL SALINE 500 ML with OCTREOTIDE ACETATE 500 MCG IV PRN ×2 (12:31)
[2019-01-23 15:33] LABS: ABSOLUTE BASOPHILS # (AUTO) 0.1 10^3/uL (0.0-0.2); ABSOLUTE EOSINOPHILS # (AUTO) 0.1 10^3/uL (0.0-0.6); ABSOLUTE LYMPHOCYTES (AUTO) 1.4 10^3/uL (0.5-4.7); ABSOLUTE MONOCYTES (AUTO) 0.6 10^3/uL (0.1-1.4); ABSOLUTE NEUT (AUTO) 4.6 10^3/uL (1.7-8.2); BASOPHILS % (AUTO) 0.9 % (0-2); EOSINOPHILS % (AUTO) 1.3 % (0-6); HEMATOCRIT 25.8 % (37.9-51.0); LYMPHOCYTES % (AUTO) 20.9 % (13-45); MEAN CORPUSCULAR HEMOGLOBIN 33.6 pg (27.0-33.4); MEAN CORPUSCULAR HGB CONC 34.8 g/dL (32.0-36.0); MEAN CORPUSCULAR VOLUME 97 fl (80-97); MONOCYTES % (AUTO) 8.8 % (3-13); PLATELET COUNT 171 10^3/uL (150-450); RED BLOOD COUNT 2.67 10^6/uL (4.35-5.55); RED CELL DISTRIBUTION WIDTH 19.5 % (11.5-14.0); SEGMENTED NEUTROPHILS % (AUTO) 68.1 % (42-78); TOTAL CELLS COUNTED % (AUTO) 100 %; WHITE BLOOD COUNT 6.8 10^3/uL (4.0-10.5)
--- NOTE | 2019-01-23 16:41 | Progress Note ---
Provider Note Provider Note: No acute event overnight. Upon encounter, patient still complains of mild abdominal discomfort not worse from yesterday. No recurrence of hematochezia so far. Hemoglobin did drop to 7.8. Will order a unit of packed RBC. He is awaiting bed availability at [facility].
[2019-01-23] MEDS: LORAZEPAM INJ 2 MG/1 ML VIAL IV PRN (19:45)
[2019-01-24] MEDS: NORMAL SALINE 500 ML with OCTREOTIDE ACETATE 500 MCG IV PRN ×6 (00:08→21:46)
[2019-01-24] MEDS: LORAZEPAM INJ 2 MG/1 ML VIAL IV PRN ×3 (01:39→21:46)
[2019-01-24] MEDS: LACTULOSE SYRUP 20 GM/30 ML UDCUP PO SCH ×3 (05:19→21:46)
[2019-01-24] MEDS: HEPARIN SOD (PORCINE) 5,000 UNIT/ML 1 ML VIAL SUBCUT SCH ×3 (05:19→21:47)
[2019-01-24 06:08] LABS: HEMATOCRIT 25.9 % (37.9-51.0); HEMOGLOBIN 9.1 g/dL (13.5-17.0); MEAN CORPUSCULAR HEMOGLOBIN 34.1 pg (27.0-33.4); MEAN CORPUSCULAR VOLUME 97 fl (80-97); PLATELET COUNT 169 10^3/uL (150-450); RED BLOOD COUNT 2.66 10^6/uL (4.35-5.55); RED CELL DISTRIBUTION WIDTH 20.7 % (11.5-14.0); WHITE BLOOD COUNT 7.9 10^3/uL (4.0-10.5)
[2019-01-24 06:13] LABS: ANION GAP 10 (5-19); CALCIUM 7.9 mg/dL (8.4-10.2); CARBON DIOXIDE 21 mmol/L (22-30); CHLORIDE 104 mmol/L (98-107); GLUCOSE 111 mg/dL (75-110); POTASSIUM 3.5 mmol/L (3.6-5.0)
[2019-01-24 06:19] LABS: BLOOD UREA NITROGEN < 2 mg/dL (7-20)
[2019-01-24] MEDS: POTASSIUM CHLORIDE 10 MEQ CAPSULE.ER PO SCH (09:39)
[2019-01-24] MEDS: DOCUSATE SODIUM 100 MG CAPSULE PO SCH ×2 (09:39→17:13)
[2019-01-24] MEDS: FOLIC ACID 1 MG TABLET PO SCH (09:39)
[2019-01-24] MEDS: PANTOPRAZOLE SODIUM 40 MG VIAL IV SCH ×2 (09:39→21:46)
[2019-01-24] MEDS: SPIRONOLACTONE 25 MG TABLET PO SCH ×2 (09:39→21:47)
[2019-01-24] MEDS: THIAMINE HCL 100 MG TABLET PO SCH (09:39)
[2019-01-24] MEDS: FUROSEMIDE 20 MG TABLET PO SCH ×2 (09:39→17:13)
[2019-01-24] MEDS: CEFTRIAXONE 1 GM/D5W RTU 1 GM/50 ML RTUPB IV SCH (09:46)
[2019-01-24 10:05] LABS: ALBUMIN 2.3 g/dL (3.5-5.0); ALKALINE PHOSPHATASE 109 U/L (38-126); ASPARTATE AMINO TRANSFERASE 93 U/L (17-59); BILIRUBIN,DIRECT 2.5 mg/dL (0.0-0.4); BILIRUBIN,TOTAL 5.8 mg/dL (0.2-1.3); TOTAL PROTEIN 5.8 g/dL (6.3-8.2)
[2019-01-24] MEDS: RIFAXIMIN 550 MG TABLET PO SCH ×2 (11:21→17:13)
[2019-01-24] MEDS: HALOPERIDOL LACTATE INJ 5 MG/1 ML VIAL ONE ×2 (13:15→13:39)
[2019-01-24] MEDS ORDERED: HALOPERIDOL LACTATE INJ 5 MG/1 ML VIAL IV ONE (14:00)
--- NOTE | 2019-01-24 14:36 | PDOC PROGRESS REPORT ---
Subjective Progress Note for:: 01/24/19 Subjective:: This is a 53 year old male with a past medical history of chronic alcohol abuse, hepatic cirrhosis and tobacco abuse who was recently treated and discharged for hepatic encephalopathy. Patient was sent back to the ER as he was complaining of recurrence of increasing abdominal pain and abdominal distention. He was admitted for possible alcoholic hepatitis. 01/21: Upon encounter, patient appears comfortable. He is oriented x3. He says that his abdominal distention has been worse in the past 24 hours. He says his abdominal pain this morning is a little better. Denies chest pain or shortness of breath. Denies hematemesis or melena or hematochezia. 01/22: Patient complained of more abdominal discomfort this morning. He does appear to be more distended. He had paracentesis and had 3.6 L drained and reported some relief. He had an episode of dark brown emesis. He was also given a rectal lactulose and passed out a small bright red bloody stool. 01/23: Upon encounter, patient still complains of mild abdominal discomfort not worse from yesterday. No recurrence of hematochezia so far. Hemoglobin did drop to 7.8. Will order a unit of packed RBC. He is awaiting bed availability at [facility]. Discussed with surgery still recommend EGD and colonoscopy to be done by GI. 01/24: No acute event overnight. No recurrence of hematochezia hematemesis so far. My encounter this morning, he is oriented x3 but does have occasional episodes of restlessness and confusion. Still awaiting for bed availability at [facility]. Reason For Visit: ALCOHOL WITHDRAW,ACUTE ALCOHOLIC HEPATITIS Physical Exam Vital Signs: Temp Pulse Resp BP Pulse Ox 97.5 F 113 H 18 126/96 H 100 01/24/19 03:55 01/24/19 14:00 01/24/19 03:55 01/24/19 03:55 01/24/19 03:55 Intake & Output 01/23/19 01/24/19 01/25/19 06:59 06:59 06:59 Intake Total 783 1028 550 Output Total 725 1025 Balance 58 3 550 Weight 165 lb 5.547 oz 168 lb 6.931 oz General appearance: PRESENT: no acute distress, well-developed, well-nourished Head exam: PRESENT: atraumatic, normocephalic Eye exam: PRESENT: conjunctiva pink, EOMI, PERRLA. ABSENT: scleral icterus Ear exam: PRESENT: normal external ear exam Mouth exam: PRESENT: moist, tongue midline Neck exam: ABSENT: carotid bruit, JVD, lymphadenopathy, thyromegaly Respiratory exam: PRESENT: clear to auscultation michele. ABSENT: rales, rhonchi, wheezes Cardiovascular exam: PRESENT: RRR. ABSENT: diastolic murmur, rubs, systolic murmur Pulses: PRESENT: normal dorsalis pedis pul GI/Abdominal exam: PRESENT: ascites, distended. ABSENT: tenderness Rectal exam: PRESENT: deferred Neurological exam: PRESENT: awake, oriented to person, oriented to place, oriented to time, CN II-XII grossly intact. ABSENT: motor sensory deficit Results Laboratory Results: 01/24/19 04:25 01/24/19 04:25 01/23/19 01/23/19 01/24/19 15:00 15:00 04:25 WBC 6.8 RBC 2.67 L Hgb 9.0 L Hct 25.8 L MCV 97 MCH 33.6 H MCHC 34.8 RDW 19.5 H Plt Count 171 Seg Neutrophils % 68.1 Sodium 134.5 L Potassium 4.1 3.5 L Chloride 104 Carbon Dioxide 21 L Anion Gap 10 BUN < 2 L Creatinine 0.53 Est GFR ( Amer) > 60 Glucose 111 H Calcium 7.9 L Total Bilirubin AST Alkaline Phosphatase Total Protein Albumin 01/24/19 01/24/19 04:25 04:25 WBC 7.9 RBC 2.66 L Hgb 9.1 L Hct 25.9 L MCV 97 MCH 34.1 H MCHC 35.0 RDW 20.7 H Plt Count 169 Seg Neutrophils % Sodium Potassium Chloride Carbon Dioxide Anion Gap BUN Creatinine Est GFR ( Amer) Glucose Calcium Total Bilirubin 5.8 H AST 93 H Alkaline Phosphatase 109 Total Protein 5.8 L Albumin 2.3 L Impressions: Abdomen Ultrasound 01/21/19 09:20 IMPRESSION: Limited visualization of some structures as above. 1. Coarse hepatic echotexture with nodular contour suggestive of intrinsic liver disease. Moderate volume ascites. 2. Otherwise unremarkable abdominal ultrasound as visualized. Abdomen CT 01/22/19 00:00 IMPRESSION: Cirrhosis with ascites and portal hypertension Probable ileus with distention of colon and small bowel. Trace bilateral pleural effusions Paracentesis Ultrasound 01/22/19 00:00 IMPRESSION: Successful ultrasound-guided paracentesis Guidance Fluoroscopy 01/23/19 00:00 IMPRESSION: SUCCESSFUL PLACEMENT OF A 5 FR DUAL LUMEN 26 CM PICC IN THE LEFT BASILIC VEIN. Interventional Vascular Procedure 01/23/19 00:00 IMPRESSION: SUCCESSFUL PLACEMENT OF A 5 FR DUAL LUMEN 26 CM PICC IN THE LEFT BASILIC VEIN. KUB X-Ray 01/23/19 07:00 IMPRESSION: Probable ileus PICC Line Insertion 01/23/19 08:42 IMPRESSION: SUCCESSFUL PLACEMENT OF A 5 FR DUAL LUMEN 26 CM PICC IN THE LEFT BASILIC VEIN. Assessment and Plan - Diagnosis (1) GI bleed Is this a current diagnosis for this admission?: Yes Plan: Status post 1 unit of packed RBC. Hemoglobin is remained stable. Continue Protonix and somatostatin drips. (2) Decompensated liver disease Is this a current diagnosis for this admission?: Yes Plan: 01/22: Patient just had paracentesis and had 3.6 L removed. Will order for albumin infusion. Continue lactulose. (3) Ascites Is this a current diagnosis for this admission?: Yes Plan: As per #2. (4) Acute alcoholic hepatitis Is this a current diagnosis for this admission?: Yes Plan: Continue Solu-Medrol. - Time Time Spent with patient: 25-34 minutes
[2019-01-24] MEDS: HALOPERIDOL LACTATE INJ 5 MG/1 ML VIAL IV PRN ×2 (18:02→22:10)
[2019-01-24] MEDS ORDERED: POTASSIUM CHLORIDE 10 MEQ CAPSULE.ER PO SCH (22:00)
[2019-01-25] MEDS: NORMAL SALINE 500 ML with OCTREOTIDE ACETATE 500 MCG IV PRN ×2 (00:54)
[2019-01-25] MEDS: LORAZEPAM INJ 2 MG/1 ML VIAL IV PRN ×2 (04:22→08:12)
[2019-01-25] MEDS: HEPARIN SOD (PORCINE) 5,000 UNIT/ML 1 ML VIAL SUBCUT SCH (05:22)
[2019-01-25] MEDS: LACTULOSE SYRUP 20 GM/30 ML UDCUP PO SCH (05:22)
[2019-01-25 05:44] LABS: ABSOLUTE BASOPHILS # (AUTO) 0.1 10^3/uL (0.0-0.2); ABSOLUTE EOSINOPHILS # (AUTO) 0.1 10^3/uL (0.0-0.6); ABSOLUTE LYMPHOCYTES (AUTO) 1.5 10^3/uL (0.5-4.7); ABSOLUTE MONOCYTES (AUTO) 0.8 10^3/uL (0.1-1.4); ABSOLUTE NEUT (AUTO) 7.1 10^3/uL (1.7-8.2); EOSINOPHILS % (AUTO) 1.4 % (0-6); HEMATOCRIT 25.9 % (37.9-51.0); LYMPHOCYTES % (AUTO) 15.9 % (13-45); MEAN CORPUSCULAR HEMOGLOBIN 34.1 pg (27.0-33.4); MEAN CORPUSCULAR HGB CONC 34.6 g/dL (32.0-36.0); MEAN CORPUSCULAR VOLUME 99 fl (80-97); MONOCYTES % (AUTO) 8.4 % (3-13); PLATELET COUNT 177 10^3/uL (150-450); RED BLOOD COUNT 2.63 10^6/uL (4.35-5.55); RED CELL DISTRIBUTION WIDTH 20.8 % (11.5-14.0); SEGMENTED NEUTROPHILS % (AUTO) 73.3 % (42-78); TOTAL CELLS COUNTED % (AUTO) 100 %; WHITE BLOOD COUNT 9.7 10^3/uL (4.0-10.5)
[2019-01-25 06:03] LABS: ALBUMIN 2.2 g/dL (3.5-5.0); ALKALINE PHOSPHATASE 106 U/L (38-126); ANION GAP 8 (5-19); ASPARTATE AMINO TRANSFERASE 77 U/L (17-59); BILIRUBIN,DIRECT 2.3 mg/dL (0.0-0.4); BILIRUBIN,TOTAL 5.4 mg/dL (0.2-1.3); CALCIUM 7.1 mg/dL (8.4-10.2); CARBON DIOXIDE 20 mmol/L (22-30); CHLORIDE 107 mmol/L (98-107); GLUCOSE 106 mg/dL (75-110); POTASSIUM 3.1 mmol/L (3.6-5.0); TOTAL PROTEIN 5.8 g/dL (6.3-8.2)
[2019-01-25 06:04] LABS: BLOOD UREA NITROGEN < 2 mg/dL (7-20)
[2019-01-25 06:11] LABS: INTERNATIONAL RATION (INR) 1.92; PROTHROMBIN TIME 22.2 SEC (11.4-15.4)
[2019-01-25 07:45] VITALS: BP 116/74
--- NOTE | 2019-01-25 16:18 | Progress Note ---
Provider Note Provider Note: Transport on bedside to take patient to [facility]. He denies acute complaints. No recurrence of hematemesis or melena so far. 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
== END 2019-01-25 09:05 | disposition short-term general hospital (02) | DRG 433 ==
LOC: ER 15:09 → UNDOADMIN 23:00 → EH 23:00 → 3W 01-21 01:05
PROVIDERS: ADMIT Internal Medicine; ATTEND Internal Medicine
PROC: 0W9G3ZX Drainage of Peritoneal Cavity, Percutaneous Approach, Diagnostic (ICD-10-PCS; principal; 2019-01-22)
PROC: 30233K1 Transfusion of Nonautologous Frozen Plasma into Peripheral Vein, Percutaneous Approach (ICD-10-PCS; 2019-01-22)
PROC: 02HV33Z Insertion of Infusion Device into Superior Vena Cava, Percutaneous Approach (ICD-10-PCS; 2019-01-23)
PROC: B518ZZA Fluoroscopy of Superior Vena Cava, Guidance (ICD-10-PCS; 2019-01-23)
PROC: B548ZZA Ultrasonography of Superior Vena Cava, Guidance (ICD-10-PCS; 2019-01-23)
PROC: 30233N1 Transfusion of Nonautologous Red Blood Cells into Peripheral Vein, Percutaneous Approach (ICD-10-PCS; 2019-01-23)
DX: K70.31 Alcoholic cirrhosis of liver with ascites (principal); K92.1 Melena; F10.239 Alcohol dependence with withdrawal, unspecified; K76.6 Portal hypertension; K70.11 Alcoholic hepatitis with ascites; K70.40 Alcoholic hepatic failure without coma; I10 Essential (primary) hypertension; Z81.1 Family history of alcohol abuse and dependence; Z82.49 Family history of ischemic heart disease and other diseases of the circulatory system; Z83.3 Family history of diabetes mellitus; Z83.6 Family history of other diseases of the respiratory system; F17.200 Nicotine dependence, unspecified, uncomplicated; D64.9 Anemia, unspecified
CPT/HCPCS: 36415; 36430; 36569; 49083; 74018; 74150; 76700; 76937; 77001; 80048; 80053; 80061; 80074; 80076; 80307; 81001; 83036; 83605; 83690; 83735; 84100; 84132; 85025; 85027; 85610; 85730; 86850; 86900; 86901; 86920; 87040; 87070; 87075; 87205; 89050; 93976; 96361; 96374; 96375; 99285; A9270-GY; J0696; J1630; J1642; J1644; J2060; J2270; J2354; J2405; J3360; J3480; J3490; J7040; P9016; P9017; P9047; S0164